=== PATIENT | male | born 2000 | race Caucasian/White ===

== ENCOUNTER 2023-05-01 14:57 | Emergency (ER) | payer OTHER, SELFPAY ==
[2023-05-01 14:59] VITALS: BP 158/79; PULSE 96; RESP 18; TEMP 36.9; O2SAT 98; BMI 25.1
--- NOTE | 2023-05-01 15:11 | PC.NURSE ---
DR YANEZ AT BEDSIDE
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
[2023-05-01 15:39] LABS: Basophils % 0.6 % (0.1-2.0); Eosinophils # 0.1 K/mm3 (0.0-0.4); Eosinophils % 3.2 % (0.1-12.0); Hemoglobin 13.4 g/dL (14.1-18.0); Lymphocytes # 0.5 K/mm3 (0.7-4.5); Lymphocytes % 19.2 % (10-50); Mean Corpuscular HGB Conc 33.5 g/dL (31.8-35.4); Mean Corpuscular Hemoglobin 26.4 pg (27.0-31.2); Mean Corpuscular Volume 78.6 fl (80-94); Mean Platelet Volume 9.5 fl (7.4-10.4); Monocytes # 0.3 K/mm3 (0.1-1.0); Monocytes % 10.7 % (1.7-9.3); Neutrophils # 1.7 K/mm3 (1.8-7.8); Neutrophils % 66.4 % (37.0-80.0); Red Blood Count 5.09 M/mm3 (4.60-6.20); Red Cell Distribution Width 14.8 % (11.5-17.5); White Blood Count 2.5 K/mm3 (4.8-10.8)
[2023-05-01 15:47] LABS: Alanine Aminotransferase 51 U/L (12-78); Albumin/Globulin Ratio 1.5 (1.1-1.8); Alkaline Phosphatase 57 U/L (38-126); Anion Gap 11.5 mEq/L (5-15); Aspartate Amino Transferase 55 U/L (17-59); Bilirubin,Total 2.6 mg/dl (0.2-1.3); Blood Urea Nitrogen 13 mg/dl (9-20); Calcium 8.6 mg/dl (8.4-10.2); Carbon Dioxide 25 mmol/L (22.0-30.0); Chloride 108 mmol/L (98-107); Estimated Glomerular Filt Rate 92 ml/min (>60); GFR (African American) 111 ML/MIN (>60); Globulin 2.7 g/dL (1.3-3.2); Glucose 125 mg/dl (74-100); Lipase 136 U/L (23-300); Potassium 3.5 mmoL/L (3.5-5.1); Sodium 141 mmol/L (136-145); Total Protein,Serum 6.7 g/dl (6.3-8.2)
[2023-05-01 15:58] LABS: Platelet Count 38 K/mm3 (142-424)
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
[2023-05-01 17:26] VITALS: BP 141/77; PULSE 77; RESP 16; TEMP 36.9; O2SAT 98
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
== END 2023-05-01 17:28 | disposition home or self-care (01) ==
PROVIDERS: Emergency Provider Emergency Medicine; PCP Family Medicine
DX: S20.219A Contusion of unspecified front wall of thorax, initial encounter (principal); S66.911A Strain of unspecified muscle, fascia and tendon at wrist and hand level, right hand, initial encounter; M25.511 Pain in right shoulder; R16.1 Splenomegaly, not elsewhere classified; V44.5XXA Car driver injured in collision with heavy transport vehicle or bus in traffic accident, initial encounter
CPT/HCPCS: 71046; 73130; 80053; 83690; 85025; 99284; 99285

== ENCOUNTER 2023-05-05 11:30 | Emergency (ER) | payer OTHER, SELFPAY ==
[2023-05-05 11:30] VITALS: BP 131/77; PULSE 64; RESP 18; TEMP 36.8; O2SAT 98; BMI 26.1
[2023-05-05 11:51] VITALS: BP 131/77; PULSE 64; RESP 18; TEMP 36.8; O2SAT 98
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
== END 2023-05-05 12:17 | disposition home or self-care (01) ==
PROVIDERS: Emergency Provider Nurse Practitioner; PCP Family Medicine
DX: Z76.89 Persons encountering health services in other specified circumstances (principal)
CPT/HCPCS: 99202; 99211; G0463

== ENCOUNTER 2024-02-22 17:21 | Emergency (ER) | payer BC, SELFPAY ==
[2024-02-22] VITALS (14 sets, daily range): BP systolic 90–133; BP diastolic 45–76; PULSE 70–94; RESP 20; TEMP 36.5–36.6; O2SAT 95–98; BMI 27.3
--- NOTE | 2024-02-22 17:24 | PC.NURSE ---
[facility] CONTACTED FOR FLIGHT CHECK
--- NOTE | 2024-02-22 17:33 | PC.NURSE ---
PHARMACY CALLED FOR DOSING OF MEDICATION
[2024-02-22] MEDS: PANTOPRAZOLE SODIUM 80 MG in 0.9 % SODIUM CHLORIDE 100 ML 100 MG IV (17:34)
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
[2024-02-22] MEDS: OCTREOTIDE ACETATE 50 MCG in 0.9 % SODIUM CHLORIDE 50 ML 102 MCG IV (17:38)
--- NOTE | 2024-02-22 17:40 | PC.NURSE ---
CONTACTING FOR TRANSFER
--- NOTE | 2024-02-22 17:40 | PC.NURSE ---
Called lab for emergent release of O+, talked to Jayy
--- NOTE | 2024-02-22 17:44 | PC.NURSE ---
[facility] CONTACTED FOR TRANSPORT
[2024-02-22 17:49] LABS: Basophils # 0.1 K/mm3 (0-0.2); Eosinophils # 0.3 K/mm3 (0.0-0.4); Eosinophils % 3.4 % (0.1-12.0); Hematocrit 39.9 % (42.0-52.0); Hemoglobin 13.7 g/dL (14.1-18.0); Lymphocytes # 3.6 K/mm3 (0.7-4.5); Lymphocytes % 39.7 % (10-50); Mean Corpuscular HGB Conc 34.2 g/dL (31.8-35.4); Mean Corpuscular Hemoglobin 27.2 pg (27.0-31.2); Mean Corpuscular Volume 79.6 fl (80-94); Mean Platelet Volume 8.8 fl (7.4-10.4); Monocytes # 0.9 K/mm3 (0.1-1.0); Monocytes % 9.4 % (1.7-9.3); Neutrophils # 4.2 K/mm3 (1.8-7.8); Neutrophils % 46.6 % (37.0-80.0); Platelet Count 116 K/mm3 (142-424); Red Blood Count 5.02 M/mm3 (4.60-6.20); Red Cell Distribution Width 15.4 % (11.5-17.5)
--- NOTE | 2024-02-22 17:55 | PC.NURSE ---
[facility] ACCEPTED FLIGHT, ON STAND-BY UNTIL OFFICIAL ACCEPTANCE FROM
--- NOTE | 2024-02-22 17:58 | HMH.EDGENADL ---
Discharge Plan Disposition Patient Disposition: Xfer Short-Term Hosp Chief Complaint: GI Bleed Referrals Follow up/Referrals: Arsh Knox MD [Primary Care Provider] - See instructions Clinical Impressions Clinical Impression: Acute upper gastrointestinal hemorrhage Instructions Patient Instructions: DI for Gastrointestinal Bleeding Discharge ED Provider: Eloy Eden General Adult HPI <LISA Montoya - Last Filed: 02/22/24 17:58> General Chief complaint: GI Bleed Stated complaint: vomiting blood Time Seen by Provider: 02/22/24 17:31 Mode of Arrival: Ambulatory Source of Information: Patient Limitations: No Limitations Description of Symptoms (Recalled from ER Triage Doc. by RN): Patient states he started vomiting blood at 4:50pm today. Patient presents very pale, hx of cancer as a child. Patient called [facility] and spoke with his GI doctor and was told to come to the nearest ED. Related Data Allergies Allergy/AdvReac Type Severity Reaction Status Date / Time morphine [MORPHINE] Allergy Mild Verified 05/05/23 11:43 <Eloy Eden MD - Last Filed: 02/22/24 19:00> History of Present Illness HPI narrative: Please note that above description of symptoms, in this electronic medical record under categorization of recalled from ER triage doctor by RN are reflective of an initial nursing assessment, however, is not reflective of my full history and physical exam that was personally taken and clarified. Consequentially, this preceding description of symptoms, which may include the patient's categorized chief complaint in the EMR, do not reflect my personal clinical impression, and the ultimate description of history of present illness and patient stated complaints should be deferred to this section of the note. Unless stated otherwise or congruent with this section of the note, additional signs, symptoms, or incongruence should be interpreted as inaccurate with my clinical impression. PFSH <LISA Montoya - Last Filed: 02/22/24 17:58> [facility] Disclaimer: The information contained in this section may have been updated after the patient was seen, as this information can be updated by other users. Social History (Updated 05/03/23 @ 22:59 by Osmar Walters MD) Smoking Status: Never smoker alcohol intake: never current occupational status: employed Travel in the last 8 weeks: None <Eloy Eden MD - Last Filed: 02/22/24 19:00> ROS Obtained: Yes All systems reviewed & no additional complaints except as documented Physical Exam <Eloy Eden MD - Last Filed: 02/22/24 19:00> General General appearance: alert and other (Intermittently vomiting large-volume bright red blood. Pale, diaphoretic) Head Head exam: atraumatic and normocephalic Eye Eye exam: Present normal appearance, PERRL and EOMI ENT ENT exam: Present mucous membranes moist and other (Blood in oropharynx) Neck Neck exam: Present normal inspection, full ROM and trachea midline Respiratory Respiratory exam: Absent normal lung sounds bilaterally, respiratory distress, wheezes, stridor, accessory muscle use or prolonged expiratory phase Cardiovascular Cardiovascular exam: Present regular rate, normal rhythm and other (Moderately hypotensive systolic 70); Absent tachycardia Abdominal Exam Abdominal exam: Present soft; Absent distention, tenderness, guarding, rebound or rigidity Extremities Exam Extremities exam: Absent edema Neurological Exam Neurological exam: Present alert, oriented X3, CN II-XII intact and normal gait; Absent motor sensory deficit Skin Skin exam: Present warm, dry and diaphoresis; Absent erythema Medical Decision Making <LISA Montoya - Last Filed: 02/22/24 17:58> Vital Signs: 02/22/24 17:32 02/22/24 17:43 02/22/24 17:45 Temperature Temperature Source Pulse Rate 81 72 78 Pulse Rate [Right Radial] Respiratory Rate Blood Pressure 90/45 L 106/67 L 123/71 Blood Pressure [Right Arm] Blood Pressure Mean 57 75 78 Blood Pressure Mean [Right Arm] Blood Pressure Source [Right Arm] Blood Pressure Position [Right Arm] 02 Sat by Pulse Oximetry 95 97 97 Oxygen Delivery Method 02/22/24 17:47 02/22/24 17:51 02/22/24 17:55 Temperature 97.7 F Temperature Source Oral Pulse Rate 94 H 77 Pulse Rate [Right Radial] 70 Respiratory Rate 20 Blood Pressure 127/55 L 109/53 L Blood Pressure [Right Arm] 90/45 L Blood Pressure Mean 75 73 Blood Pressure Mean [Right Arm] 60 Blood Pressure Source [Right Arm] Automatic Cuff Blood Pressure Position [Right Arm] Sitting 02 Sat by Pulse Oximetry 96 96 97 Oxygen Delivery Method Room Air 02/22/24 18:00 02/22/24 18:05 02/22/24 18:15 Temperature Temperature Source Pulse Rate 73 78 89 Pulse Rate [Right Radial] Respiratory Rate Blood Pressure 109/58 L 112/73 118/73 Blood Pressure [Right Arm] Blood Pressure Mean 76 80 87 Blood Pressure Mean [Right Arm] Blood Pressure Source [Right Arm] Blood Pressure Position [Right Arm] 02 Sat by Pulse Oximetry 98 98 95 Oxygen Delivery Method 02/22/24 18:20 02/22/24 18:25 02/22/24 18:30 Temperature Temperature Source Pulse Rate 88 81 72 Pulse Rate [Right Radial] Respiratory Rate Blood Pressure 126/63 128/71 116/76 Blood Pressure [Right Arm] Blood Pressure Mean 84 84 85 Blood Pressure Mean [Right Arm] Blood Pressure Source [Right Arm] Blood Pressure Position [Right Arm] 02 Sat by Pulse Oximetry 98 97 98 Oxygen Delivery Method 02/22/24 18:35 Temperature Temperature Source Pulse Rate 79 Pulse Rate [Right Radial] Respiratory Rate Blood Pressure 122/74 Blood Pressure [Right Arm] Blood Pressure Mean 93 Blood Pressure Mean [Right Arm] Blood Pressure Source [Right Arm] Blood Pressure Position [Right Arm] 02 Sat by Pulse Oximetry 98 Oxygen Delivery Method Lab Data Lab Results 02/22/24 17:28: WBC 9.0, RBC 5.02, Hgb 13.7 L, Hct 39.9 L, MCV 79.6 L, MCH 27.2, MCHC 34.2, RDW 15.4, Plt Count 116 L, MPV 8.8, Neut % (Auto) 46.6, Lymph % (Auto) 39.7, [place] % (Auto) 9.4 H, Eos % (Auto) 3.4, Baso % (Auto) 1.0, Neut # (Auto) 4.2, Lymph # (Auto) 3.6, [place] # (Auto) 0.9, Eos # (Auto) 0.3, Baso # (Auto) 0.1, Sodium 142, Potassium 3.8, Chloride 112 H, Carbon Dioxide 26, Anion Gap 7.8, BUN 16, Creatinine 1.00, Estimated Creat Clear 130, Estimated GFR 91, Est GFR ( Amer) 110, Glucose 87, Calcium 8.6, Total Bilirubin 2.1 H, AST 64 H, ALT 54, Alkaline Phosphatase 48, Total Protein 6.4, Albumin 3.8, Globulin 2.6, Albumin/Globulin Ratio 1.5, Blood Type O Negative, Antibody Screen Negative, Crossmatch ([facility]) See Detail 02/22/24 17:33: PT 14.7 H, INR 1.39 H, APTT 26.9 02/22/24 17:28 02/22/24 17:28 Orders (Tests/Meds): ED MEDICATIONS Generic Name Dose Route Start Last Admin Trade Name Freq PRN Reason Stop Dose Admin Octreotide Acetate 500 mcg/ 255 mls @ 25.5 mls/hr 02/22/24 17:45 02/22/24 18:09 Sodium Chloride IV 03/23/24 17:44 25.5 mls/hr .Q10H MAYANK Administration 50 MCG/HR Sodium Chloride 250 mls @ 25 mls/hr 02/22/24 17:45 02/22/24 18:55 Sod Chlor 0.9% 250ml Bag IV 02/23/24 17:44 25 mls/hr .Q10H MAYANK Administration Sodium Chloride 10 ml 02/22/24 17:31 Sodium Chloride 0.9% 10ml Vial IV 03/23/24 17:30 NEEDED PRN dilute protonix Discontinued Medications Generic Name Dose Route Start Last Admin Trade Name Freq PRN Reason Stop Dose Admin Lactated Ringer's 1,000 mls @ 999 mls/hr 02/22/24 17:31 02/22/24 18:54 Lactated Ringer's 1000 Ml Bag IV 02/22/24 18:31 999 mls/hr .Q1H1M ONE Administration Octreotide Acetate 50 mcg/ 51 mls @ 102 mls/hr 02/22/24 17:45 02/22/24 17:38 Sodium Chloride IV 02/22/24 18:14 102 mls/hr ONCE ONE Administration Pantoprazole Sodium 80 mg/ 100 mls @ 100 mls/hr 02/22/24 17:46 02/22/24 17:34 Sodium Chloride IV 02/22/24 18:45 100 mls/hr ONCE ONE Administration Pantoprazole Sodium 40 mg 02/22/24 17:31 02/22/24 17:46 Pantoprazole 40mg Vial IV 02/22/24 17:32 Not Given ONCE ONE ORDERS Category Date Time Status Transfuse RBC's [Red Blood Cells] Stat [facility] 02/22/24 17:28 Results Type and Screen Stat [facility] 02/22/24 17:28 Results CBC w/Auto Diff [Complete Blood Count Auto Diff] Stat Lab 02/22/24 17:28 Completed CMP [Comprehensive Metabolic Panel] Stat Lab 02/22/24 17:28 Completed PT INR [Prothrombin Time INR] Stat Lab 02/22/24 17:33 Completed PTT [Activated Partial Thrombo Time] Stat Lab 02/22/24 17:33 Completed <Eloy Eden MD - Last Filed: 02/22/24 19:00> Medical Records Medical records reviewed: Yes I reviewed the patient's medical records. Juan Carlos Inquiry Pt receiving controlled substance: No Juan Carlos was queried for this patient: No Vital Signs: 02/22/24 17:32 02/22/24 17:43 02/22/24 17:45 Temperature Temperature Source Pulse Rate 81 72 78 Pulse Rate [Right Radial] Respiratory Rate Blood Pressure 90/45 L 106/67 L 123/71 Blood Pressure [Right Arm] Blood Pressure Mean 57 75 78 Blood Pressure Mean [Right Arm] Blood Pressure Source [Right Arm] Blood Pressure Position [Right Arm] 02 Sat by Pulse Oximetry 95 97 97 Oxygen Delivery Method 02/22/24 17:47 02/22/24 17:51 02/22/24 17:55 Temperature 97.7 F Temperature Source Oral Pulse Rate 94 H 77 Pulse Rate [Right Radial] 70 Respiratory Rate 20 Blood Pressure 127/55 L 109/53 L Blood Pressure [Right Arm] 90/45 L Blood Pressure Mean 75 73 Blood Pressure Mean [Right Arm] 60 Blood Pressure Source [Right Arm] Automatic Cuff Blood Pressure Position [Right Arm] Sitting 02 Sat by Pulse Oximetry 96 96 97 Oxygen Delivery Method Room Air 02/22/24 18:00 02/22/24 18:05 02/22/24 18:15 Temperature Temperature Source Pulse Rate 73 78 89 Pulse Rate [Right Radial] Respiratory Rate Blood Pressure 109/58 L 112/73 118/73 Blood Pressure [Right Arm] Blood Pressure Mean 76 80 87 Blood Pressure Mean [Right Arm] Blood Pressure Source [Right Arm] Blood Pressure Position [Right Arm] 02 Sat by Pulse Oximetry 98 98 95 Oxygen Delivery Method 02/22/24 18:20 02/22/24 18:25 02/22/24 18:30 Temperature Temperature Source Pulse Rate 88 81 72 Pulse Rate [Right Radial] Respiratory Rate Blood Pressure 126/63 128/71 116/76 Blood Pressure [Right Arm] Blood Pressure Mean 84 84 85 Blood Pressure Mean [Right Arm] Blood Pressure Source [Right Arm] Blood Pressure Position [Right Arm] 02 Sat by Pulse Oximetry 98 97 98 Oxygen Delivery Method 02/22/24 18:35 Temperature Temperature Source Pulse Rate 79 Pulse Rate [Right Radial] Respiratory Rate Blood Pressure 122/74 Blood Pressure [Right Arm] Blood Pressure Mean 93 Blood Pressure Mean [Right Arm] Blood Pressure Source [Right Arm] Blood Pressure Position [Right Arm] 02 Sat by Pulse Oximetry 98 Oxygen Delivery Method Lab Data Lab Results 02/22/24 17:28: WBC 9.0, RBC 5.02, Hgb 13.7 L, Hct 39.9 L, MCV 79.6 L, MCH 27.2, MCHC 34.2, RDW 15.4, Plt Count 116 L, MPV 8.8, Neut % (Auto) 46.6, Lymph % (Auto) 39.7, [place] % (Auto) 9.4 H, Eos % (Auto) 3.4, Baso % (Auto) 1.0, Neut # (Auto) 4.2, Lymph # (Auto) 3.6, [place] # (Auto) 0.9, Eos # (Auto) 0.3, Baso # (Auto) 0.1, Sodium 142, Potassium 3.8, Chloride 112 H, Carbon Dioxide 26, Anion Gap 7.8, BUN 16, Creatinine 1.00, Estimated Creat Clear 130, Estimated GFR 91, Est GFR ( Amer) 110, Glucose 87, Calcium 8.6, Total Bilirubin 2.1 H, AST 64 H, ALT 54, Alkaline Phosphatase 48, Total Protein 6.4, Albumin 3.8, Globulin 2.6, Albumin/Globulin Ratio 1.5, Blood Type O Negative, Antibody Screen Negative, Crossmatch ([facility]) See Detail 02/22/24 17:33: PT 14.7 H, INR 1.39 H, APTT 26.9 Orders (Tests/Meds): ED MEDICATIONS Generic Name Dose Route Start Last Admin Trade Name Freq PRN Reason Stop Dose Admin Octreotide Acetate 500 mcg/ 255 mls @ 25.5 mls/hr 02/22/24 17:45 02/22/24 18:09 Sodium Chloride IV 03/23/24 17:44 25.5 mls/hr .Q10H MAYANK Administration 50 MCG/HR Sodium Chloride 250 mls @ 25 mls/hr 02/22/24 17:45 02/22/24 18:55 Sod Chlor 0.9% 250ml Bag IV 02/23/24 17:44 25 mls/hr .Q10H MAYANK Administration Sodium Chloride 10 ml 02/22/24 17:31 Sodium Chloride 0.9% 10ml Vial IV 03/23/24 17:30 NEEDED PRN dilute protonix Discontinued Medications Generic Name Dose Route Start Last Admin Trade Name Freshilpi PRN Reason Stop Dose Admin Lactated Ringer's 1,000 mls @ 999 mls/hr 02/22/24 17:31 02/22/24 18:54 Lactated Ringer's 1000 Ml Bag IV 02/22/24 18:31 999 mls/hr .Q1H1M ONE Administration Octreotide Acetate 50 mcg/ 51 mls @ 102 mls/hr 02/22/24 17:45 02/22/24 17:38 Sodium Chloride IV 02/22/24 18:14 102 mls/hr ONCE ONE Administration Pantoprazole Sodium 80 mg/ 100 mls @ 100 mls/hr 02/22/24 17:46 02/22/24 17:34 Sodium Chloride IV 02/22/24 18:45 100 mls/hr ONCE ONE Administration Pantoprazole Sodium 40 mg 02/22/24 17:31 02/22/24 17:46 Pantoprazole 40mg Vial IV 02/22/24 17:32 Not Given ONCE ONE ORDERS Category Date Time Status Transfuse RBC's [Red Blood Cells] Stat [facility] 02/22/24 17:28 Results Type and Screen Stat [facility] 02/22/24 17:28 Results CBC w/Auto Diff [Complete Blood Count Auto Diff] Stat Lab 02/22/24 17:28 Completed CMP [Comprehensive Metabolic Panel] Stat Lab 02/22/24 17:28 Completed PT INR [Prothrombin Time INR] Stat Lab 02/22/24 17:33 Completed PTT [Activated Partial Thrombo Time] Stat Lab 02/22/24 17:33 Completed Medical Decision Narrative: 23-year-old male previous history of lymphoma status post chemo therapy with resultant liver fibrosis and cirrhosis, hepatosplenomegaly, no history of EGD or definitive diagnosis of esophageal varices presenting with bright red vomiting. Started just before arrival, About 30 minutes. Patient states that he was about an hour after eating. [place] sick. Started vomiting, it was bright red. Got ready and came immediately to the emergency department. He did call his liver team at [facility], [facility] whom [facility] They recommended he come emergently to the emergency department. Patient still nauseated, intermittently vomiting, denies abdominal pain, chest pain, lightheadedness, but does feel weak. Not on any anticoagulation. History was obtained via conversation with patient and family. On arrival, patient hemodynamically stable, alert, [oriented x4, ][appropriate, ]GCS [15], moving all extremities spontaneously, pupils equal and reactive to light. Full physical exam performed and significant for pale, diaphoretic, nontachycardic patient. He is moderately hypotensive with systolic 75. Nontachycardic. Abdomen is soft, nontender, nondistended. He does have blood in his oropharynx. He is intermittently vomiting bright red blood. Differential includes variceal bleed, gastric ulcer, gastritis, esophageal perforation, end-stage liver failure, among others. Patient was given 80 mg IV Protonix push, 50 mcg octreotide bolus and 50 mcg/h octreotide drip. Patient also given 1 unit O+ blood. For symptomatic management[ and correction of underlying abnormalities]. Flight team contacted and asked to wait on standby. [facility] hepatology was contacted and case was discussed at length, recommended direct admission to the PICU if possible, but possible ED to ED transfer, whichever is fastest. Pediatric ICU contacted and case was discussed at length graciously excepted transfer under Dr Carlson. workup independently interpreted and significant for normal white count 9.0, hematocrit 39.9, hemoglobin 13.7, thrombocytopenia 116. Chemistry nonactionable overall, bilirubin mildly elevated at 2.1, LFTs otherwise unremarkable including alkaline phosphatase, AST, ALT. Patient's blood type O-. On immediate reevaluation after meds and blood, patient appears much more comfortable. Improved hemodynamics with blood pressure 122/70, pulse rate 79, respiratory rate 20, 98% on room air, afebrile and well-appearing. No longer pale, diaphoretic, no longer having any complaints and no further vomiting. Because patient high risk for clinical decompensation if discharged, deemed appropriate for transfer and inpatient admission. Results were relayed to patient who voiced understanding and patient was agreeable to transfer, inpatient admission, and management. Patient was graciously accepted and transferred to [facility] pediatric ICU for further definitive management, under Dr. Carlson. Critical Care <Eloy Eden MD - Last Filed: 02/22/24 19:00> Critical Care Time Critical Care Time: Yes (hematologic, GI) Attestation: On 02/22/24, the high probability of a clinically significant, sudden or life threatening deterioration of the following system(s) required my full and direct attention, intervention and personal management. The time I documented below is in addition to time spent performing reported procedures but includes the following listed in this critical care notation. Total Time Total Critical Care Time: 60
[2024-02-22 18:01] LABS: Alanine Aminotransferase 54 U/L (12-78); Albumin Level 3.8 g/dl (3.5-5.0); Albumin/Globulin Ratio 1.5 (1.1-1.8); Alkaline Phosphatase 48 U/L (38-126); Anion Gap 7.8 mEq/L (5-15); Aspartate Amino Transferase 64 U/L (17-59); Bilirubin,Total 2.1 mg/dl (0.2-1.3); Blood Urea Nitrogen 16 mg/dl (9-20); Calcium 8.6 mg/dl (8.4-10.2); Carbon Dioxide 26 mmol/L (22.0-30.0); Chloride 112 mmol/L (98-107); Creatinine Clearance Estimated 130 mL/min (50-200); Estimated Glomerular Filt Rate 91 ml/min (>60); GFR (African American) 110 ML/MIN (>60); Globulin 2.6 g/dL (1.3-3.2); Glucose 87 mg/dl (74-100); Potassium 3.8 mmoL/L (3.5-5.1); Sodium 142 mmol/L (136-145); Total Protein,Serum 6.4 g/dl (6.3-8.2)
[2024-02-22 18:04] LABS: Activated Partial Thrombo Time 26.9 seconds (22.8-30.6); INR 1.39 (0.9-1.1); Prothrombin Time 14.7 seconds (10.1-12.5)
--- NOTE | 2024-02-22 18:05 | PC.NURSE ---
ATTEMPTING TO REACH PICU MD INTERTYPE OPERATOR
[2024-02-22] MEDS: OCTREOTIDE ACETATE 500 MCG in 0.9 % SODIUM CHLORIDE 250 ML 25.5 MCG IV (18:09)
--- NOTE | 2024-02-22 18:37 | PC.NURSE ---
PICU PAGED AGAIN
--- NOTE | 2024-02-22 18:46 | PC.NURSE ---
DR WU SPEAKING WITH PICU MD
[2024-02-22] MEDS: LACTATED RINGERS 1000ML 1,000 ML 999 ML IV (18:54)
[2024-02-22] MEDS: 0.9 % SODIUM CHLORIDE 250 ML 25 ML IV (18:55)
--- NOTE | 2024-02-22 18:57 | PC.NURSE ---
CONTACTED [facility] FOR FLIGHT CHECK, WILL CALL BACK
--- NOTE | 2024-02-22 19:04 | PC.NURSE ---
RECEIVED CALL FROM KEVIN AT , [facility] FLIGHT CHECK AND CALL BACK
--- NOTE | 2024-02-22 19:16 | PC.NURSE ---
[facility] is enroute to transfer pt to [facility] via [facility]. ETA 43 mins. and RN made aware. CR
--- NOTE | 2024-02-22 19:22 | PC.NURSE ---
Attempted to give report to [facility] PICU, nurse asked to call back after shift change in about 20 minutes. Nurse was unaware of the transfer.
--- NOTE | 2024-02-22 19:34 | PC.NURSE ---
Spoke with Cindi at transfer team they will arrive in 30 minutes.
--- NOTE | 2024-02-22 19:42 | PC.NURSE ---
[facility] called. Requesting a facesheet be faxed to them. Also advised they have a 29 min ETA. CR
--- NOTE | 2024-02-22 20:00 | PC.NURSE ---
report given to TYRA Wise at PICU.
== END 2024-02-22 20:21 | disposition short-term general hospital (02) ==
PROVIDERS: Emergency Provider Emergency Medicine; PCP Family Medicine
DX: K92.2 Gastrointestinal hemorrhage, unspecified (principal); K71.7 Toxic liver disease with fibrosis and cirrhosis of liver; Z85.72 Personal history of non-Hodgkin lymphomas; Z92.21 Personal history of antineoplastic chemotherapy; T45.1X5A Adverse effect of antineoplastic and immunosuppressive drugs, initial encounter
CPT/HCPCS: 36430; 80053; 85025; 85610; 85730; 86850; 96365; 96366; 96375; 99291; J2354; P9016

== ENCOUNTER 2024-02-29 21:05 | Emergency (ER) | payer BC, SELFPAY ==
[2024-02-29] VITALS (8 sets, daily range): BP systolic 72–108; BP diastolic 37–74; PULSE 63–84; RESP 11–17; TEMP 36.6–36.7; O2SAT 97–100; BMI 25.1
[2024-02-29] MEDS: CEFTRIAXONE SODIUM 2 GM in 0.9 % SODIUM CHLORIDE 100 ML IV (21:29)
[2024-02-29 21:30] LABS: Basophils # 0.1 K/mm3 (0-0.2); Basophils % 0.8 % (0.1-2.0); Eosinophils # 0.3 K/mm3 (0.0-0.4); Eosinophils % 4.1 % (0.1-12.0); Hematocrit 35.1 % (42.0-52.0); Hemoglobin 11.7 g/dL (14.1-18.0); Lymphocytes % 37.5 % (10-50); Mean Corpuscular HGB Conc 33.3 g/dL (31.8-35.4); Mean Corpuscular Hemoglobin 27.4 pg (27.0-31.2); Mean Corpuscular Volume 82.4 fl (80-94); Mean Platelet Volume 9.4 fl (7.4-10.4); Monocytes # 0.7 K/mm3 (0.1-1.0); Monocytes % 8.3 % (1.7-9.3); Neutrophils % 49.3 % (37.0-80.0); Platelet Count 184 K/mm3 (142-424); Red Blood Count 4.26 M/mm3 (4.60-6.20); White Blood Count 8.1 K/mm3 (4.8-10.8)
[2024-02-29 21:32] LABS: Chloride 110 mmol/L (98-107); Potassium 4.1 mmoL/L (3.5-5.1); Sodium 141 mmol/L (136-145)
[2024-02-29 21:35] LABS: Alanine Aminotransferase 49 U/L (12-78); Albumin Level 3.3 g/dl (3.5-5.0); Albumin/Globulin Ratio 1.4 (1.1-1.8); Alkaline Phosphatase 48 U/L (38-126); Anion Gap 8.1 mEq/L (5-15); Aspartate Amino Transferase 48 U/L (17-59); Bilirubin,Total 1.6 mg/dl (0.2-1.3); Blood Urea Nitrogen 11 mg/dl (9-20); Calcium 8.9 mg/dl (8.4-10.2); Carbon Dioxide 27 mmol/L (22.0-30.0); Creatinine Clearance Estimated 112 mL/min (50-200); Estimated Glomerular Filt Rate 82 ml/min (>60); GFR (African American) 99 ML/MIN (>60); Globulin 2.4 g/dL (1.3-3.2); Glucose 104 mg/dl (74-100); Total Protein,Serum 5.7 g/dl (6.3-8.2)
[2024-02-29] MEDS: OCTREOTIDE ACETATE 500 MCG in 0.9 % SODIUM CHLORIDE 250 ML 25.5 MCG IV (21:35)
[2024-02-29] MEDS: OCTREOTIDE ACETATE 50 MCG in 0.9 % SODIUM CHLORIDE 50 ML 102 MCG IV (21:41)
[2024-02-29] MEDS: PANTOPRAZOLE 40MG VIAL 40 MG IV (21:50)
--- NOTE | 2024-02-29 22:05 | HMH.EDGENADL ---
Discharge Plan Disposition Patient Disposition: Xfer Short-Term Hosp Chief Complaint: GI Bleed Referrals Follow up/Referrals: Arsh Knox MD [Primary Care Provider] - See instructions Clinical Impressions Clinical Impression: Esophageal varices, Acute upper gastrointestinal bleeding Instructions Patient Instructions: DI for Gastrointestinal Bleeding Discharge ED Provider: Eloy Eden General Adult HPI General Chief complaint: GI Bleed Stated complaint: gi bleed Time Seen by Provider: 02/29/24 21:06 Mode of Arrival: Ambulatory Source of Information: Patient Limitations: No Limitations Description of Symptoms (Recalled from ER Triage Doc. by RN): pt states began vomitting blood @ 2044 and had [address] last week for esophageal varices @ children History of Present Illness HPI narrative: Please note that above description of symptoms, in this electronic medical record under categorization of recalled from ER triage doctor by RN are reflective of an initial nursing assessment, however, is not reflective of my full history and physical exam that was personally taken and clarified. Consequentially, this preceding description of symptoms, which may include the patient's categorized chief complaint in the EMR, do not reflect my personal clinical impression, and the ultimate description of history of present illness and patient stated complaints should be deferred to this section of the note. Unless stated otherwise or congruent with this section of the note, additional signs, symptoms, or incongruence should be interpreted as inaccurate with my clinical impression. Related Data Allergies Allergy/AdvReac Type Severity Reaction Status Date / Time morphine [MORPHINE] Allergy Mild Verified 05/05/23 11:43 [facility] Disclaimer: The information contained in this section may have been updated after the patient was seen, as this information can be updated by other users. Medical History (Updated 02/29/24 @ 22:11 by Eloy Eden MD) Esophageal varices Lymphoma Social History (Updated 05/03/23 @ 22:59 by Osmar Walters MD) Smoking Status: Never smoker alcohol intake: never current occupational status: employed Travel in the last 8 weeks: None ROS Obtained: Yes All systems reviewed & no additional complaints except as documented Physical Exam General General appearance: alert, in distress and other (Pale, diaphoretic, holding emesis basin near full of bright red blood) Head Head exam: atraumatic and normocephalic Eye Eye exam: Present normal appearance, PERRL and EOMI ENT ENT exam: Present mucous membranes moist Neck Neck exam: Present normal inspection, full ROM and trachea midline Respiratory Respiratory exam: Absent respiratory distress, wheezes, stridor, accessory muscle use or prolonged expiratory phase Cardiovascular Cardiovascular exam: Present regular rate and normal rhythm Abdominal Exam Abdominal exam: Present soft; Absent distention, tenderness, guarding, rebound or rigidity Extremities Exam Extremities exam: Absent edema Neurological Exam Neurological exam: Present alert, oriented X3, CN II-XII intact and normal gait; Absent motor sensory deficit Skin Skin exam: Present warm, dry and diaphoresis; Absent erythema Medical Decision Making Medical Records Medical records reviewed: Yes I reviewed the patient's medical records. Juan Carlos Inquiry Pt receiving controlled substance: No Juan Carlos was queried for this patient: No Vital Signs: 02/29/24 21:05 Temperature 98.1 F Temperature Source Axillary Pulse Rate [Right] 75 Respiratory Rate 16 Blood Pressure [Right Arm] 105/74 L Blood Pressure Mean [Right Arm] 84 02 Sat by Pulse Oximetry 97 Lab Data Lab Results 02/29/24 21:16: WBC 8.1, RBC 4.26 L, Hgb 11.7 L, Hct 35.1 L, MCV 82.4, MCH 27.4, MCHC 33.3, RDW 16.0, Plt Count 184, MPV 9.4, Neut % (Auto) 49.3, Lymph % (Auto) 37.5, Ford % (Auto) 8.3, Eos % (Auto) 4.1, Baso % (Auto) 0.8, Neut # (Auto) 4.0, Lymph # (Auto) 3.0, Ford # (Auto) 0.7, Eos # (Auto) 0.3, Baso # (Auto) 0.1, Sodium 141, Potassium 4.1, Chloride 110 H, Carbon Dioxide 27, Anion Gap 8.1, BUN 11, Creatinine 1.10, Estimated Creat Clear 112, Estimated GFR 82, Est GFR ( Amer) 99, Glucose 104 H, Calcium 8.9, Total Bilirubin 1.6 H, AST 48, ALT 49, Alkaline Phosphatase 48, Total Protein 5.7 L, Albumin 3.3 L, Globulin 2.4, Albumin/Globulin Ratio 1.4, Crossmatch (AHG) See Detail 02/29/24 21:16 02/29/24 21:16 Orders (Tests/Meds): ED MEDICATIONS Generic Name Dose Route Start Last Admin Trade Name Freq PRN Reason Stop Dose Admin Octreotide Acetate 500 mcg/ 255 mls @ 25.5 mls/hr 02/29/24 21:15 02/29/24 21:35 Sodium Chloride IV 03/30/24 21:14 25.5 mls/hr .Q10H MAYANK Administration 50 MCG/HR Sodium Chloride 250 mls @ 25 mls/hr 02/29/24 21:30 Sod Chlor 0.9% 250ml Bag IV 03/01/24 21:29 .Q10H MAYANK Sodium Chloride 250 mls @ 25 mls/hr 02/29/24 21:30 Sod Chlor 0.9% 250ml Bag IV 03/01/24 21:29 .Q10H MAYANK Sodium Chloride 10 ml 02/29/24 21:37 Sodium Chloride 0.9% 10ml Vial IV 03/30/24 21:36 NEEDED PRN dilute protonix Discontinued Medications Generic Name Dose Route Start Last Admin Trade Name Freq PRN Reason Stop Dose Admin Octreotide Acetate 50 mcg/ 51 mls @ 102 mls/hr 02/29/24 21:07 02/29/24 21:41 Sodium Chloride IV 02/29/24 21:08 102 mls/hr ONCE ONE Administration Ceftriaxone Sodium 2 gm/ 100 mls @ 200 mls/hr 02/29/24 21:06 02/29/24 21:29 Sodium Chloride IV 02/29/24 21:35 200 mls/hr ONCE ONE Administration Pantoprazole Sodium 40 mg 02/29/24 21:37 02/29/24 21:50 Pantoprazole 40mg Vial IV 02/29/24 21:38 40 mg ONCE ONE Administration ORDERS Category Date Time Status Transfuse RBC's [Red Blood Cells] Stat BBK 02/29/24 21:16 Received Type and Screen Stat BBK 02/29/24 21:16 Received CBC w/Auto Diff [Complete Blood Count Auto Diff] Stat Lab 02/29/24 21:16 Completed CMP [Comprehensive Metabolic Panel] Stat Lab 02/29/24 21:16 Completed Lactic Acid Stat Lab 02/29/24 21:06 Ordered Medical Decision Narrative: 23-year-old male history of lymphoma treated with chemotherapy with resultant cirrhosis, new recent diagnosis of esophageal varices having been banded 6 times on 02/22/2024 at [facility] presenting with bright red emesis. This has been going on about 15 minutes prior to this visit. Was at dinner, started burping, began vomiting bright red blood. Came emergently to the emergency department. Lightheaded, presyncopal, diaphoretic, pale. History was obtained via conversation with patient, family, chart review. On arrival, patient hypotensive, alert, oriented x4, appropriate, GCS 15, moving all extremities spontaneously, pupils equal and reactive to light. Full physical exam performed and significant for patient is diaphoretic, pale, hypotensive with mean arterial pressures 50s. Nontachycardic. Lungs are clear to auscultation, but patient has bright red emesis in emesis basin with 2 to 3 units of blood present. Intermittently vomiting bright red blood.. Abdomen is soft, nontender, nondistended. Differential includes band failure, new variceal bleed, gastric varices, peptic ulcer, dieulefoy lesion, among others. Hepatology and ICU at [facility] was contacted and case was discussed at length. In the meantime, patient was given 40 mg IV Protonix, 2 g ceftriaxone IV, 4 mg Zofran IV, fluid bolus, 50 mcg octreotide bolus, 50 mics per hour octreotide drip, 2 units uncrossed matched O+ blood for symptomatic management and correction of underlying abnormalities. Workup independently interpreted and significant for hemoglobin 11.7, hematocrit 35.1 (13.7 and 39.9, respectively, on 02/22/2024). Chemistry nonactionable. Conversation had with ICU gastroenterology/hepatology at [facility], graciously excepted transfer. Patient stabilized with blood, octreotide, and previously mentioned medications. Because patient high risk for clinical decompensation if discharged, deemed appropriate for transfer and inpatient admission. Results were relayed to patient who voiced understanding and patient was agreeable to transfer, inpatient admission, and management. Patient was graciously accepted and transferred to for further definitive management, under Dr. Vazquez. Critical Care Critical Care Time Critical Care Time: Yes (GI) Attestation: On 02/29/24, the high probability of a clinically significant, sudden or life threatening deterioration of the following system(s) required my full and direct attention, intervention and personal management. The time I documented below is in addition to time spent performing reported procedures but includes the following listed in this critical care notation. Total Time Total Critical Care Time: 60
[2024-02-29] MEDS: ONDANSETRON 4MG/2ML VIAL 4 MG IV (22:10)
--- NOTE | 2024-02-29 22:54 | PC.NURSE ---
EMS arrived for patient transport to [facility]. Blood continued with EMS crew and Baron Samaniego RN managing.
--- NOTE | 2024-02-29 23:00 | PC.NURSE ---
report called to TYRA Guardado at [facility]
== END 2024-02-29 23:00 | disposition short-term general hospital (02) ==
PROVIDERS: Emergency Provider Emergency Medicine; PCP Family Medicine
DX: K92.2 Gastrointestinal hemorrhage, unspecified (principal); I85.00 Esophageal varices without bleeding; K71.7 Toxic liver disease with fibrosis and cirrhosis of liver; T45.1X5A Adverse effect of antineoplastic and immunosuppressive drugs, initial encounter; Z85.72 Personal history of non-Hodgkin lymphomas; Z92.21 Personal history of antineoplastic chemotherapy
CPT/HCPCS: 36430; 80053; 85025; 86850; 96365; 96366; 96375; 99291; J0696; J2354; J2405; P9016

== ENCOUNTER 2024-03-09 18:56 | Emergency (ER) | payer BC, SELFPAY ==
[2024-03-09 18:56] VITALS: BP 62/20; PULSE 64; RESP 26; TEMP 36.4; O2SAT 97; BMI 27.2
[2024-03-09] MEDS: LACTATED RINGERS 1000ML 1,000 ML 999 ML IV (19:05)
--- NOTE | 2024-03-09 19:06 | HMH.EDGENADL ---
Discharge Plan Disposition Patient Disposition: Xfer Short-Term Hosp Clinical Impressions Clinical Impression: Hemorrhagic shock, Hematemesis, Bleeding esophageal varices Stand Alone Forms Stand Alone Forms: Transfer Record - ED Instructions Patient Instructions: DI for Gastrointestinal Bleeding Discharge ED Provider: Rubi Roblero General Adult HPI General Chief complaint: GI Bleed Stated complaint: gi bleed Time Seen by Provider: 03/09/24 19:01 History of Present Illness HPI narrative: This patient is a 23-year-old male with a history of lymphoma, cirrhosis, esophageal varices status post banding multiple times at [facility] presenting to the emergency department for evaluation with concern for large-volume hematemesis. Patient was evaluated here 02/22/2024 as well as 02/29/2024 for similar issue and was flown to [facility], at which point he had EGD with banding of esophageal varices. He noted that he was discharged a couple days ago. Bleeding started at 1850pm today. Related Data Allergies Allergy/AdvReac Type Severity Reaction Status Date / Time morphine [MORPHINE] Allergy Mild Verified 05/05/23 11:43 [facility] Disclaimer: The information contained in this section may have been updated after the patient was seen, as this information can be updated by other users. Medical History Esophageal varices Lymphoma Social History Smoking Status: Never smoker alcohol intake: never current occupational status: employed Travel in the last 8 weeks: None ROS Obtained: Yes All systems reviewed & no additional complaints except as documented Physical Exam General General appearance: alert Comment: Pale, diaphoretic, holding a large bucket of frankly bloody emesis Head Head exam: atraumatic and normocephalic Eye Eye exam: Present normal appearance, PERRL and EOMI ENT ENT exam: Present normal exam, normal oropharynx, mucous membranes moist and normal external ear exam Neck Neck exam: Present normal inspection, full ROM and trachea midline; Absent tenderness Chest Chest inspection: Present normal inspection and symmetric chest wall rise; Absent tenderness Respiratory Respiratory exam: Present normal lung sounds bilaterally; Absent respiratory distress, wheezes, stridor or accessory muscle use Cardiovascular Cardiovascular exam: Present normal rhythm and tachycardia Abdominal Exam Abdominal exam: Present soft; Absent distention, tenderness or guarding Extremities Exam Extremities exam: Present normal inspection, full ROM and normal capillary refill; Absent tenderness or edema Back Exam Back exam: Present normal inspection and full ROM; Absent tenderness Neurological Exam Neurological exam: Present alert, oriented X3, CN II-XII intact and normal gait; Absent motor sensory deficit Psychiatric Psychiatric exam: Present normal affect and normal mood Skin Skin exam: Present diaphoresis and pallor Medical Decision Making Medical Records Medical records reviewed: Yes I reviewed the patient's medical records. Juan Carlos Inquiry Pt receiving controlled substance: No Vital Signs: 03/09/24 18:56 Temperature 97.6 F Temperature Source Axillary Pulse Rate [Apical] 64 Respiratory Rate 26 H Blood Pressure [Left Arm] 62/20 L Blood Pressure Mean [Left Arm] 34 Blood Pressure Source [Left Arm] Automatic Cuff 02 Sat by Pulse Oximetry 97 Oxygen Delivery Method Room Air Lab Data Lab results reviewed: Yes I reviewed the patient's lab results. Lab Results 03/09/24 19:09: WBC 9.9, RBC 3.34 L, Hgb 8.9 L, Hct 27.5 L, MCV 82.3, MCH 26.6 L, MCHC 32.3, RDW 15.3, Plt Count 190, MPV 9.8, Neut % (Auto) 53.8, Lymph % (Auto) 33.6, Whitman % (Auto) 9.4 H, Eos % (Auto) 2.5, Baso % (Auto) 0.7, Neut # (Auto) 5.3, Lymph # (Auto) 3.3, Whitman # (Auto) 0.9, Eos # (Auto) 0.3, Baso # (Auto) 0.1 03/09/24 19:09 Orders (Tests/Meds): ED MEDICATIONS Generic Name Dose Route Start Last Admin Trade Name Freq PRN Reason Stop Dose Admin Octreotide Acetate 500 mcg/ 255 mls @ 25.5 mls/hr 03/09/24 19:15 03/09/24 19:13 Sodium Chloride IV 04/08/24 19:14 25.5 mls/hr .Q10H MAYANK Administration 50 MCG/HR Pantoprazole Sodium 80 mg/ 100 mls @ 100 mls/hr 03/09/24 19:01 Sodium Chloride IV 03/09/24 20:00 ONCE ONE Pantoprazole Sodium 80 mg/ 100 mls @ 10 mls/hr 03/09/24 20:15 03/09/24 19:14 Sodium Chloride IV 03/12/24 20:14 10 mls/hr .Q10H MAYANK Administration Lactated Ringer's 1,000 mls @ 999 mls/hr 03/09/24 19:03 Lactated Ringer's 1000 Ml Bag IV 03/09/24 20:03 .Q1H1M ONE Discontinued Medications Generic Name Dose Route Start Last Admin Trade Name Rosa PRN Reason Stop Dose Admin Octreotide Acetate 50 mcg 03/09/24 19:02 Octreotide 100 Mcg/Ml 1ml Amp IV 03/09/24 19:03 ONCE ONE Ondansetron HCl 8 mg 03/09/24 19:03 Ondansetron 4mg/2ml Vial IV 03/09/24 19:04 ONCE ONE ORDERS Category Date Time Status Type and Screen Stat BBK 03/09/24 19:09 Results Activated Partial Thrombo Time Stat Lab 03/09/24 19:09 Received Complete Blood Count Auto Diff Stat Lab 03/09/24 19:09 Completed Comprehensive Metabolic Panel Stat Lab 03/09/24 19:09 Received Prothrombin Time INR Stat Lab 03/09/24 19:09 Received Medical Decision Narrative: In summary, this patient is a 23-year-old male presenting to the Emergency Department for evaluation of likely esophageal variceal bleed with massive hematemesis. Differential diagnoses considered include but are not limited to esophageal variceal bleed, hemorrhagic shock, symptomatic anemia. Ruling out the most morbid conditions drove assessment. I reviewed patient's past medical records and noted multiple previous evaluations in the ED as per HPI for similar issues.. Patient arrives critically ill with hypotension, tachycardia, pallor, and diaphoresis. He has a large bucket of frankly bloody emesis. Lab work was sent and patient was emergently initiated on resuscitation with 2 units of uncrossed matched blood as well as 2 L of IV fluids. He was given an octreotide bolus and drip and PPI bolus and drip. He was also given 8 mg of IV Zofran. I had an interactive discussion with the fellow (Mague) at [facility] who advised that they wanted the patient to transfer there as direct admit. We initiated conversations with transfer center and had an interactive discussion with ED physician who accepted the patient, then they notified us the patient would be a direct admit. I had an interactive discussion with Dr. Lodya Chery who advised she was floor and patient would have to go to PICU. Given this, they got PICU on the phone. After interactive discussion, Dr. Mckeon accepted the patient. Patient's pressures and HR improved after fluid resuscitation and blood product. He felt much better after initiation of octreotide, PPI, and zofran. Flight crew contacted immediately after acceptance of patient, and flight was arranged for patient emergently to [facility]. Hemoglobin resulted at 8.9 just prior to transfer, and this was prior to another episode of large volume hematemesis. Patient was transferred in stable but critical condition with blood product resuscitation ongoing. Critical Care Critical Care Time Critical Care Time: Yes Attestation: On , the high probability of a clinically significant, sudden or life threatening deterioration of the following system(s) required my full and direct attention, intervention and personal management. The time I documented below is in addition to time spent performing reported procedures but includes the following listed in this critical care notation. Total Time Total Critical Care Time: 30
[2024-03-09] MEDS: ONDANSETRON 4MG/2ML VIAL 8 MG IV (19:10)
--- NOTE | 2024-03-09 19:11 | PC.NURSE ---
Spoke with sera at [facility] pharmacy, verified drip rates and bolus dose.
--- NOTE | 2024-03-09 19:11 | PC.NURSE ---
Father signed blood transfusion consent for emergent blood, patient verbalized understanding.
[2024-03-09] MEDS: OCTREOTIDE ACETATE 500 MCG in 0.9 % SODIUM CHLORIDE 250 ML 25.5 MCG IV (19:13)
[2024-03-09] MEDS: PANTOPRAZOLE SODIUM 80 MG in 0.9 % SODIUM CHLORIDE 100 ML 10 MG IV ×2 (19:14→19:33)
[2024-03-09 19:15] VITALS: BP 114/60; PULSE 98; O2SAT 97
[2024-03-09 19:17] VITALS: BP 103/52; PULSE 97; O2SAT 97
--- NOTE | 2024-03-09 19:20 | PC.NURSE ---
Connected Unit 1 of untyped/uncrossed emergent blood to right ac access. Immediate transfusion began without any side effects noted. Multiple RN's at bedside infusing and monitoring vss. for patient stability. Connected unit 2 of untyped and uncrossed blood to right hand access. Patient tolerated well. Monitoring continues. VSS at this time. Patient is awake talking, interacting.
[2024-03-09 19:23] LABS: Basophils # 0.1 K/mm3 (0-0.2); Basophils % 0.7 % (0.1-2.0); Eosinophils # 0.3 K/mm3 (0.0-0.4); Eosinophils % 2.5 % (0.1-12.0); Hematocrit 27.5 % (42.0-52.0); Hemoglobin 8.9 g/dL (14.1-18.0); Lymphocytes # 3.3 K/mm3 (0.7-4.5); Lymphocytes % 33.6 % (10-50); Mean Corpuscular HGB Conc 32.3 g/dL (31.8-35.4); Mean Corpuscular Hemoglobin 26.6 pg (27.0-31.2); Mean Corpuscular Volume 82.3 fl (80-94); Mean Platelet Volume 9.8 fl (7.4-10.4); Monocytes # 0.9 K/mm3 (0.1-1.0); Monocytes % 9.4 % (1.7-9.3); Neutrophils # 5.3 K/mm3 (1.8-7.8); Neutrophils % 53.8 % (37.0-80.0); Platelet Count 190 K/mm3 (142-424); Red Blood Count 3.34 M/mm3 (4.60-6.20); Red Cell Distribution Width 15.3 % (11.5-17.5); White Blood Count 9.9 K/mm3 (4.8-10.8)
--- NOTE | 2024-03-09 19:29 | PC.NURSE ---
[employer] has landed. [employer] shift supervisor & staff holding traffic
[2024-03-09 19:30] VITALS: BP 109/63; PULSE 101; O2SAT 98
[2024-03-09 19:30] LABS: Chloride 105 mmol/L (98-107); Potassium 3.6 mmoL/L (3.5-5.1); Sodium 136 mmol/L (136-145)
[2024-03-09 19:32] VITALS: BP 102/56; PULSE 89; O2SAT 96
[2024-03-09 19:33] LABS: Alanine Aminotransferase 36 U/L (12-78); Albumin Level 3.2 g/dl (3.5-5.0); Albumin/Globulin Ratio 1.3 (1.1-1.8); Alkaline Phosphatase 55 U/L (38-126); Anion Gap 8.6 mEq/L (5-15); Aspartate Amino Transferase 43 U/L (17-59); Bilirubin,Total 0.9 mg/dl (0.2-1.3); Blood Urea Nitrogen 12 mg/dl (9-20); Calcium 8.2 mg/dl (8.4-10.2); Carbon Dioxide 26 mmol/L (22.0-30.0); Creatinine Clearance Estimated 136 mL/min (50-200); Estimated Glomerular Filt Rate 103 ml/min (>60); GFR (African American) 124 ML/MIN (>60); Globulin 2.4 g/dL (1.3-3.2); Glucose 109 mg/dl (74-100); Total Protein,Serum 5.6 g/dl (6.3-8.2)
[2024-03-09] MEDS: OCTREOTIDE 100 MCG/ML 1ML AMP 50 MCG IV (19:36)
[2024-03-09 19:37] LABS: Activated Partial Thrombo Time 27.7 seconds (22.8-30.6); INR 1.27 (0.9-1.1); Prothrombin Time 13.5 seconds (10.1-12.5)
[2024-03-09] MEDS: CEFTRIAXONE SODIUM 2 GM in 0.9 % SODIUM CHLORIDE 100 ML IV (19:38)
--- NOTE | 2024-03-09 19:40 | PC.NURSE ---
Late Entry: 1900 pt escorted back to ER trauma room 2. Dr. Roblero & Keisha Marin RN, Demetria Mota RN, Kristen Brock RN, and Salima Lynch RN at bedside starting 2 lines. [address] Roblero for Protonix gtt & bolus, Octreotide bolus & gtt, Zofran 8mg IVP, and LR 1 L bolus. 1902 [employer] declined d/t weather & flight crew unavailable 1905 [employer] [place] [facility] flight crew accepted and states [address] Roblero s/w Dr. Alamo. 1906 force adjustment supervisor notified of incoming flight crew in 19 min. 1910 MD Roblero would like 2 units of uncross-matched blood given emergently. Lab notified of this. 1924 MD Roblero s/w d/t they are going to direct admit the patient and need to speak to another accepting MD. 1934 Attempted to call report to , nurse states we can't report until change of shift . They were notified that Flight team is here and is being transferred to their stretcher now. states we will call back
[2024-03-09 19:45] VITALS: BP 102/56; PULSE 89; RESP 21; TEMP 36.5; O2SAT 96
--- NOTE | 2024-03-09 19:50 | PC.NURSE ---
Williams from called to obtain report. He spoke with Ashley.
== END 2024-03-09 20:41 | disposition short-term general hospital (02) ==
PROVIDERS: Emergency Provider Emergency Medicine; PCP Family Medicine
DX: I85.01 Esophageal varices with bleeding (principal); R57.8 Other shock; K92.0 Hematemesis
CPT/HCPCS: 36430; 80053; 85025; 85610; 85730; 86850; 96365; 96375; 99291; J0696; J2354; J2405; P9016

== ENCOUNTER 2025-02-19 12:59 | Outpatient (CLI) | payer BC, SELFPAY ==
[2025-02-19 13:23] LABS: Basophils % 0.9 % (0.1-2.0); Eosinophils # 0.2 Kmm3 (0.0-0.4); Hematocrit 33.4 % (42.0-52.0); Hemoglobin 10.7 g/dL (14.1-18.0); Lymphocytes % 29.6 % (10-50); Mean Corpuscular Hemoglobin 22.5 pg (27.0-31.2); Mean Corpuscular Volume 70.3 fl (80-94); Monocytes # 0.5 K/mm3 (0.1-1.0); Neutrophils # 1.6 K/mm3 (1.8-7.8); Neutrophils % 50.2 % (37.0-80.0); Nucleated Red Blood Cells # 0 10^3/uL; Nucleated Red Blood Cells % 0 %; Platelet Count 63 K/mm3 (142-424); Red Blood Count 4.75 M/mm3 (4.60-6.20); Red Cell Distribution Width 15.7 % (11.5-17.5); Red Cell Distribution Width-SD 39.2 fL; White Blood Count 3.2 K/mm3 (4.8-10.8)
[2025-02-19 13:54] LABS: INR 1.31 (0.9-1.1); Prothrombin Time 14.3 seconds (10.1-12.5)
[2025-02-19 14:49] LABS: Alanine Aminotransferase 55 U/L (12-78); Albumin Level 2.7 g/dl (3.5-5.0); Alkaline Phosphatase 89 U/L (38-126); Aspartate Amino Transferase 59 U/L (17-59); Bilirubin,Indirect 1.1 mg/dL (0.0-0.9); Bilirubin,Total 1.1 mg/dl (0.2-1.3); Bilirubin,Unconjugated 1.1 mg/dL (0.0-1.1); Total Protein,Serum 5.7 g/dl (6.3-8.2)
[2025-02-21 07:38] LABS: AFP, Tumor Marker 2.1 ng/mL (0.0-5.7)
== END 2025-02-19 23:59 | disposition home or self-care (01) ==
PROVIDERS: Visit Provider Radiology Diagnostic Radiology
DX: Z95.828 Presence of other vascular implants and grafts (principal)
CPT/HCPCS: 36415; 80076; 82105; 85025; 85610

== ENCOUNTER 2025-04-29 15:27 | Outpatient (CLI) | payer BC, SELFPAY ==
--- OUTSIDE RECORDS SUMMARY | 2004-12-10 01:00 | XMS_ITS | Encounter Summary ---
Author Organization [facility] Address [address] [place] [address] Care Team Providers Care Technology Coordinator Name Role Phone Unavailable Primary Care Provider Unavailabl e Encounter Details Date Type Department Care Team (Late st Contact Info) Description 12/10/2004 Hospital Encounter [facility] Department of Radiology [address] [place] [phone] Social History Tobacco Use Types Packs/Day Years Used Date Smoking Tobacco: Never Smokeless Tobacco: Never Alcohol Use Standard Drinks/Week Comments No 0 (1 standard drink = 0.6 oz pur e alcohol) Intimate Partner Violence Answer Date R ecorded If you are in a relationship , do you feel safe in that relationship? Not currently in a relationship 03/09/2024 If you are in a relationship , do you feel safe in that relationship? Not currently in a relationship 03/09/2024 Depression Answer Date Recorded PHQ-2 Score 0 10/25/2023 Safety and Environment Answer Date Daniel rded Do you have any concerns of physical abuse, sexual abuse, or neglect of your child? No 03/09/2024 Adult hurting you or family (-18) Not on file 03/09/2024 Someone touched you in a sexual way? (-18) Not on file 03/09/2024 Is someone hurting your or your family? No 03/09/2024 Historical abuse worry Not on file If you have firearms in the home, are they all in locked storage AND unloaded? Not on file 03/09/2024 Adolescent Education and Socialization Answer Date Recorded Grades Are Mostly Not on file 12/11/2024 Supplemental Education Services None 12/11/2024 Getting School Help Needed Not on file 12/11 Suspensions/Expulsions (this academic year) Not on file 12/11/2024 School Absences Not on file 12/11/2024 Peer Relationships Not on file 12/11/2024 Education Answer Date Recorded What is the highest level of school you have completed or the highest degree you have received? Associate degree: academic program 05/02/2019 Sex and Gender Information Value Date Recorded Sex Assigned at Not on file Legal Sex Male 5:17 AM EST Gender Identity Not on file Sexual Orientation Not on file Occupation Industry Job Start Date Job End Date student Not on file Not on file Not on file documented as of this encounter Plan of Treatment Not on file documented as of this encounter Visit Diagnoses Not on filedocumented in this encounter
--- OUTSIDE RECORDS SUMMARY | 2004-12-14 01:00 | XMS_ITS | Encounter Summary ---
Author Organization [facility] Address [address] [place] [address] Care Team Providers Care Sr. Vendor Management Associate Name Role Phone Unavailable Primary Care Provider Unavailabl e Encounter Details Date Type Department Care Team (Late st Contact Info) Description 12/14/2004 Hospital Encounter [facility] Division of Pediatric General and Thoracic Surgery [address] [place] [phone] Social History Tobacco Use Types Packs/Day [...]
--- OUTSIDE RECORDS SUMMARY | 2005-03-04 | XMS_ITS | Encounter Summary ---
Author Organization [facility] Address [address] [place] [address] Care Team Providers Care Medical Scribe Name Role Phone Unavailable Primary Care Provider Unavailabl e Encounter Details Date Type Department Care Team (Late st Contact Info) Description 03/04/2005 Hospital Encounter [facility] Cancer and Blood Diseases [place] [address] [place] [phone] Social History Tobacco Use Types Packs/Day [...]
--- OUTSIDE RECORDS SUMMARY | 2005-03-30 | XMS_ITS | Encounter Summary ---
Author Organization [facility] Address [address] [place] [address] Care Team Providers Care Dolphin Trainer Name Role Phone Unavailable Primary Care Provider Unavailabl e Encounter Details Date Type Department Care Team (Late st Contact Info) Description 03/30/2005 Hospital Encounter [facility] Department of Radiology [address] [place] [phone] Social History Tobacco Use Types Packs/Day [...]
--- OUTSIDE RECORDS SUMMARY | 2005-05-06 | XMS_ITS | Encounter Summary ---
Author Organization [facility] Address [address] [place] [address] Care Team Providers Care Mri Tech Name Role Phone Unavailable Primary Care Provider Unavailabl e Encounter Details Date Type Department Care Team (Late st Contact Info) Description 05/06/2005 Hospital Encounter [facility] Cancer and Blood Diseases [place] [address] [place] [phone] Social History Tobacco Use Types Packs/Day [...]
--- OUTSIDE RECORDS SUMMARY | 2005-06-10 | XMS_ITS | Encounter Summary ---
Author Organization [facility] Address [address] [place] [address] Care Team Providers Care Bicycle Service Technician Name Role Phone Unavailable Primary Care Provider Unavailabl e Encounter Details Date Type Department Care Team (Late st Contact Info) Description 06/10/2005 Hospital Encounter [facility] Cancer and Blood Diseases [place] [address] [place] [phone] Social History Tobacco Use Types Packs/Day [...]
--- OUTSIDE RECORDS SUMMARY | 2005-07-27 | XMS_ITS | Encounter Summary ---
Author Organization [facility] Address [address] [place] [address] Care Team Providers Care Groundwater Consultant Name Role Phone Unavailable Primary Care Provider Unavailabl e Encounter Details Date Type Department Care Team (Late st Contact Info) Description 07/27/2005 Hospital Encounter [facility] Cancer and Blood Diseases [place] [address] [place] [phone] Social History Tobacco Use Types Packs/Day [...] on file documented as of this encounter H&P Notes * Edt, Audit [place] - 10/10/2009 1:53 PM EST documented in this encounter OR Notes * OR Anesthesia - Edt, Audit [place] - 10/10/2009 1:53 PM EST documented in this encounter Miscellaneous Notes * Consent Other - Edt, Audit [place] - 11/27/2009 12:30 PM EST * Consent Informed - Edt, Audit [place] - 10/10/2009 1:53 PM EST documented in this encounter Plan of Treatment Not on file documented as of this encounter Visit Diagnoses Not on filedocumented in this encounter
--- OUTSIDE RECORDS SUMMARY | 2005-08-26 01:00 | XMS_ITS | Encounter Summary ---
Author Organization [facility] Address [address] [place] [address] Care Team Providers Care Subway Train Operator Name Role Phone Unavailable Primary Care Provider Unavailabl e Encounter Details Date Type Department Care Team (Late st Contact Info) Description 08/26/2005 Hospital Encounter [facility] Cancer and Blood Diseases [place] [address] [place] [phone] Social History Tobacco Use Types Packs/Day [...] on file documented as of this encounter Progress Notes * Edt, Audit [place] - 08/25/2005 8:09 AM EST documented in this encounter H&P Notes * Edt, Audit [place] - 10/10/2009 1:52 PM EST documented in this encounter OR Notes * OR Anesthesia - Edt, Audit [place] - 10/10/2009 1:53 PM EST documented in this encounter Miscellaneous Notes * Consent Informed - Edt, Audit [place] - 10/10/2009 1:52 PM EST * Consent Other - Edt, Audit [place] - 05/14/2009 2:03 PM EDT * Operative Report - Abdifatah Benito M.D. - 08/26/2005 9:37 AM ESTDATE OF OPERATION: 08/26/2005 SURGEON(S): Abdifatah Benito M.D. PREOPERATIVE DIAGNOSIS: Acute lymphoblastic leukemia. POSTOPERATIVE DIAGNOSIS: Acute lymphoblastic leukemia. OPERATION PERFORMED: Lumbar puncture with installation of intrathecal chemotherapy. INDICATIONS: The patient is a nearly 5-year-old boy with acute lymphoblastic leukemia who per protocol is due a dose of intrathecal methotrexate today. PROCEDURE: After the induction of anesthesia, the patient was placed in the left lateral decubitus position and the lower lumbar area was prepped with Betadine and draped. A spinal tap was performed at the L3-L4 interspace with a 2-1/2 inch, 22-gauge spinal needle. Clear fluid was obtained and collected for cell count and differential, a total volume of approximately 1 ml. Following this, I gave him 12 mg of methotrexate mixed with 5 ml of normal saline without any complications. The needle and syringe were then removed. The area was cleansed with Io-Gone and then covered with a band-aid. He was returned to the recovery room in excellent condition. Abdiftaah Benito MD Signed via Electronic Authentication by: Abdifatah Benito MD 08/26/2005 14:22 RH/mqa A A Doc #[id number] cc: Abdifatah Benito MD [address] [place] [address] documented in this encounter Plan of Treatment Not on file documented as of this encounter Visit Diagnoses Not on filedocumented in this encounter
--- OUTSIDE RECORDS SUMMARY | 2005-09-06 01:00 | XMS_ITS | Encounter Summary ---
Author Organization [facility] Address [address] [place] [address] Care Team Providers Care Physician Primary Care Sports Medicine Name Role Phone Unavailable Primary Care Provider Unavailabl e Encounter Details Date Type Department Care Team (Late st Contact Info) Description 09/06/2005 Hospital Encounter [facility] Division of Cardiology [address] [place] [phone] Social History Tobacco Use Types Packs/Day [...] No 03/09/2024 Adult hurting you or family (-) Not on file 03/09/2024 Someone touched you in a sexual way? (-) Not on file 03/09/2024 Is someone hurting [...] on file documented as of this encounter Procedure Notes * Edt, Audit [place] - 02/11/2010 9:56 AM EDT * Edt, Audit [place] - 11/27/2009 12:30 PM EST documented in this encounter Miscellaneous Notes * Consent Other - Edt, Audit [place] - 02/11/2010 9:56 AM EDT documented in this encounter Plan of Treatment Not on file documented as of this encounter Visit Diagnoses Not on filedocumented in this encounter
--- OUTSIDE RECORDS SUMMARY | 2005-09-23 01:00 | XMS_ITS | Encounter Summary ---
Author Organization [facility] Address [address] [place] [address] Care Team Providers Care Child Caregiver Name Role Phone Unavailable Primary Care Provider Unavailabl e Encounter Details Date Type Department Care Team (Late st Contact Info) Description 09/23/[address] [facility] Division of Pediatric General and Thoracic Surgery [address] [place] [phone] Social History Tobacco Use Types Packs/Day [...] this encounter H&P Notes * Edt, Audit [place] - 10/10/2009 1:52 PM EST documented in this encounter OR Notes * OR Anesthesia - Edt, Audit [place] - 10/10/2009 1:52 PM EST documented in this encounter Miscellaneous Notes * Consent Other - Edt, Audit [place] - 10/10/2009 1:52 PM EST * Consent Informed - Edt, Audit [place] - 10/10/2009 1:52 PM EST * Consent Informed - Edt, Audit [place] - 10/10/2009 1:52 PM EST * Operative Report - Grant Woodall - 09/23/2005 3:53 PM ESTDATE OF OPERATION: 09/23/2005 SURGEON(S): Grant Woodall M.D. PREOPERATIVE DIAGNOSIS: Acute lymphoblastic leukemia POSTOPERATIVE DIAGNOSIS: Same. OPERATION PERFORMED: Intrathecal chemotherapy and spinal tap as per treatment protocol. INDICATIONS: Acute lymphoblastic leukemia on treatment protocol. PROCEDURE: The patient was brought to the operating room and was given general anesthesia by the Anesthesiology Service. The patient was then placed in the left lateral position. The lower lumbosacral area was palpated and bony markings identified and the area was prepped and draped under aseptic conditions. Spinal fluid was obtained using 2 1/2 22 gauge spinal needle. Clear spinal fluid was collected and sent for analysis as requested by the primary oncology team. The patient was then administered intrathecal chemotherapy Methotrexate as per treatment protocol. At the end of this procedure all needles were disposed of and the area was bandaged. The patient tolerated the procedure well and was sent to the recovery room. Grant Woodall MD Signed via Electronic Authentication by: Grant Woodall MD 09/28/2005 08:11 AM/mqa P A Doc #[id number] cc: Grant Woodall MD [address] [place] [address] * Operative Report - Narinder Radford - 09/23/2005 2:10 PM ESTDATE OF OPERATION: 09/23/2005 SURGEON(S): Narinder Radford M.D., PhD. 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 OPERATION PERFORMED: Placement of left subclavian MediPort, single lumen. INDICATIONS: Chemotherapy. PROCEDURE: After informed written consent was obtained, the patient was taken to the operating room and placed on the operating room table in the supine position where general endotracheal anesthesia was induced. The skin of the left chest was then prepped and draped in the usual sterile fashion and a needle was used to access the left subclavian vein. A wire was placed and a 2 cm skin incision was made and a pocket dissected out for a single-lumen MediPort. A 6.6-Syriac catheter size was chosen and was secured in place at the fascial level using Prolene. The line was tunneled to the venipuncture site and was inserted to a point where the tip came to rest at the junction of the superior vena cava and the atrium. Next, the Hannah's fascia was closed using interrupted fashion using 4-0 Vicryl and the 4-0 Monocryl was used to close the skin in an interrupted fashion. The patient tolerated the procedure well. Catheter aspirated and flushed well and was flushed with 100 units per mL of heparin 3 mL. Chest x-ray is pending. Narinder Radford MD, Ph.D. Signed via Electronic Authentication by: Narinder Radford MD, Ph.D. 09/26/2005 14:03 THI/mqa P A Doc #[id number] cc: Narinder Radford MD, Ph.D. [address] [place] [address] documented in this encounter Plan of Treatment Not on file documented as of this encounter Visit Diagnoses Not on filedocumented in this encounter
--- OUTSIDE RECORDS SUMMARY | 2005-12-02 01:00 | XMS_ITS | Encounter Summary ---
Author Organization [facility] Address [address] [place] [address] Care Team Providers Care Corner Block Cutter Name Role Phone Unavailable Primary Care Provider Unavailabl e Encounter Details Date Type Department Care Team (Late st Contact Info) Description 12/02/2005 Hospital Encounter [facility] Cancer and Blood Diseases [place] [address] [place] [phone] Social History Tobacco Use Types Packs/Day [...] Needed Not on file 12/11 Suspensions/Expulsions (this year) Not on file 12/11/2024 School Absences [...] this encounter Progress Notes * Edt, Audit [place] - 12/14/2005 7:25 AM EST documented in this encounter H&P Notes * Edt, Audit [place] - 11/07/2009 8:52 AM EST documented in this encounter OR Notes * OR Anesthesia - Edt, Audit [place] - 11/07/2009 8:52 AM EST documented in this encounter Miscellaneous Notes * Consent Other - Edt, Audit [place] - 11/27/2009 12:29 PM EST * Consent Informed - Edt, Audit [place] - 11/07/2009 8:52 AM EST * Orders - Edt, Audit [place] - 01/04/2006 5:54 PM EST * Orders - Edt, Audit [place] - 12/02/2005 12:32 PM EST * Orders - Edt, Audit [place] - 12/02/2005 12:30 PM EST * Orders - Edt, Audit [place] - 12/02/2005 12:27 PM EST * Operative Report - Grant Woodall - 12/02/2005 8:07 AM ESTDATE OF OPERATION: 12/02/2005 SURGEON(S): Grant Woodall M.D. PREOPERATIVE DIAGNOSIS: Acute lymphoblastic leukemia. POSTOPERATIVE DIAGNOSIS: Acute lymphoblastic leukemia. OPERATION PERFORMED: Spinal tap and intrathecal chemotherapy 12 mg methotrexate. PROCEDURE: The patient was brought to the operating room and was given general anesthesia by the anesthesiology service. The patient was then placed in the left lateral position. The lower lumbosacral area was exposed. The area was prepped and draped under aseptic conditions. Clear spinal fluid was collected using a 22-gauge, 2-1/2-inch spinal needle. Spinal fluid was collected in collection vials and sent for analysis as requested by the primary oncology team. The patient was then administered 12 mg of methotrexate as per treatment protocol intrathecally, which he tolerated well. At the end of the procedure, the surgical area was cleaned and bandage was applied and all the needles were disposed of. The patient was sent to the recovery room. Grant Woodall MD Signed via Electronic Authentication by: Grant Woodall MD 12/09/2005 08:23 AM/mqa A P Doc #[id number] cc: Grant Woodall MD [address] [place], [place] [phone] documented in this encounter Plan of Treatment Not on file documented as of this encounter Visit Diagnoses Not on filedocumented in this encounter
--- OUTSIDE RECORDS SUMMARY | 2006-02-24 | XMS_ITS | Encounter Summary ---
Author Organization [facility] Address [address] [place] [address] Care Team Providers Care Middleware Administrator Name Role Phone Unavailable Primary Care Provider Unavailabl e Encounter Details Date Type Department Care Team (Late st Contact Info) Description 02/24/2006 Hospital Encounter [facility] Cancer and Blood Diseases [place] [address] [place] [phone] Social History Tobacco Use Types Packs/Day [...] this encounter H&P Notes * Edt, Audit [place] - 11/07/2009 8:53 AM EST documented in this encounter OR Notes * OR Anesthesia - Edt, Audit [place] - 11/07/2009 8:53 AM EST documented in this encounter Miscellaneous Notes * Consent Other - Edt, Audit [place] - 11/07/2009 8:53 AM EST * Consent Informed - Edt, Audit [place] - 11/07/2009 8:53 AM EST * Orders - Edt, Audit [place] - 04/21/2006 4:50 PM EDT * Orders - Edt, Audit [place] - 04/21/2006 4:26 PM EDT * Orders - Edt, Audit [place] - 03/24/2006 2:51 PM EDT * Operative Report - Grant Woodall - 02/24/2006 6:51 AM EDTDATE OF OPERATION: 02/24/2006 SURGEON(S): Grant Woodall M.D. PREOPERATIVE DIAGNOSIS: Acute lymphoblastic leukemia. POSTOPERATIVE DIAGNOSIS: Same. OPERATION PERFORMED: Spinal tap and intrathecal chemotherapy, 12 mg methotrexate as per treatment protocol. INDICATIONS: Acute lymphoblastic leukemia on treatment protocol. PROCEDURE: The patient was brought to the operating room and was given general anesthesia by the anesthesiology service. The patient was then placed in the left lateral position. The lower lumbosacral area was exposed and bony markings were palpated and identified. The area was prepped and draped under aseptic conditions. Clear spinal fluid was collected using a 22-gauge, 2-1/2-inch spinal needle. The spinal fluid was collected and sent for analysis as requested by the primary oncology team. The patient was then administered 12 mg of methotrexate, as per treatment protocol, which he tolerated the procedure well. At the end of the procedure, the needles were disposed of, the surgical area was cleaned, bandage was applied, and the patient was sent to the recovery room. Grant Woodall MD Signed via Electronic Authentication by: Grant Woodall MD 02/25/2006 15:40 AM/mqa A P Doc #[id number] cc: Grant Woodall MD [address] [place], [place] [phone] documented in this encounter Plan of Treatment Not on file documented as of this encounter Visit Diagnoses Not on filedocumented in this encounter
--- OUTSIDE RECORDS SUMMARY | 2006-05-20 | XMS_ITS | Encounter Summary ---
Author Organization [facility] Address [address] [place] [address] Care Team Providers Care Health Center Manager Name Role Phone Unavailable Primary Care Provider Unavailabl e Encounter Details Date Type Department Care Team (Late st Contact Info) Description 05/20/2006 Hospital Encounter [facility] Cancer and Blood Diseases [place] [address] [place] [phone] Social History Tobacco Use Types Packs/Day [...] this encounter H&P Notes * Edt, Audit [place] - 11/07/2009 8:53 AM EST documented in this encounter OR Notes * OR Anesthesia - Edt, Audit [place] - 11/07/2009 8:53 AM EST documented in this encounter Miscellaneous Notes * Consent Other - Edt, Audit [place] - 02/11/2010 9:56 AM EDT * Consent Informed - Edt, Audit [place] - 11/07/2009 8:53 AM EST * Orders - Edt, Audit [place] - 05/20/2006 4:20 PM EDT * Orders - Edt, Audit [place] - 05/20/2006 12:16 PM EDT documented in this encounter Plan of Treatment Not on file documented as of this encounter Visit Diagnoses Not on filedocumented in this encounter
--- OUTSIDE RECORDS SUMMARY | 2006-08-11 | XMS_ITS | Encounter Summary ---
Author Organization [facility] Address [address] [place] [address] Care Team Providers Care Registry Nurse Name Role Phone Unavailable Primary Care Provider Unavailabl e Encounter Details Date Type Department Care Team (Late st Contact Info) Description 08/11/2006 Hospital Encounter [facility] Cancer and Blood Diseases [place] [address] [place] [phone] Social History Tobacco Use Types Packs/Day [...] this encounter H&P Notes * Edt, Audit [place] - 05/21/2008 2:20 PM EDT documented in this encounter Miscellaneous Notes * Miscellaneous - Edt, Audit [place] - 12/18/2007 12:19 PM EST documented in this encounter Plan of Treatment Not on file documented as of this encounter Visit Diagnoses Not on filedocumented in this encounter
--- OUTSIDE RECORDS SUMMARY | 2007-01-26 | XMS_ITS | Encounter Summary ---
Author Organization [facility] Address [address] [place] [address] Care Team Providers Care Utility Aircrewman Name Role Phone Unavailable Primary Care Provider Unavailabl e Encounter Details Date Type Department Care Team (Late st Contact Info) Description 01/26/2007 Hospital Encounter [facility] Cancer and Blood Diseases [place] [address] [place] [phone] Social History Tobacco Use Types Packs/Day [...] on file documented as of this encounter Procedures Procedure Name Priority Date/Time Associated Diagnosis Comments CSF DIFF Routine 01/26/2007 7:[address] Routine 01/26/2007 7:44 AM EDT CYTOLOGY REPORT Routine 01/26/2007 7:44 AM EDT RENAL (KIDNEY) PROFILE Routine 01/26/2007 7:00 AM EDT PHOSPHORUS (PHOSPHATE) Routine 01/26/2007 7:00 AM EDT MAGNESIUM Routine 01/26/2007 7:00 AM EDT HEPATIC PROFILE (NO GGT) Routine 01/26/2007 7:00 AM EDT IGG STAT 01/26/2007 7:00 AM EDT CALCIUM BLOOD Routine 01/26/2007 7:00 AM EDT documented in this encounter Results * CYTOLOGY REPORT (01/26/2007 7:44 AM EDT) 01/26/2007 7:44 AM EDT Narrative [facility] - 01/27/2007 5:19 PM EDT * * Accession #: Collected: Received: Verified: [id number] 01/26/2007 01/27/2007 01/27/07 * * * Cytology Report * * * * Clinical Diagnosis * * Not provided * Specimen * * (A) CSF smear * Gross * * (A) Received from the Clinical Lab is one Hinojosa stained slide. * Adequecy * * Adequate * Microscopic * * (A) 1 Hinojosa stain: The slide shows a few lymphocytes and monocytes. * Diagnosis * * (A) CSF smear, cytology: A few benign mononuclear cells. * Reviewed with: Lisa Phelps * The Attending Pathologist has personally examined the specimen(s) and concurs with the final report. * Torres Sommer, Pathologist (electronic signature) Date verified: 01/27/07 * * * * Torres Sommer M.D. PATHOLOGY/CYTOLOGY ORDERABL ES Final Result [facility] [address] [place] [address], * CSF DIFF (01/26/2007 7:44 AM EDT) CSF LYMPHS 73 % [facility] CSF MONOS 27 % [facility] # MAN CLS CNTD 30 CELLS [facility] 01/26/2007 7:44 AM EDT 01/26/2007 7:44 AM EDT Abdifatah Benito M.D. BODY FLUIDS AND STOOLS ORDERABLES Final Result [facility] * (ABNORMAL) CSF CT (01/26/2007 7:44 AM EDT) CSF APPEARANCE CLEAR [facility] CSF RBC COUNT 1(H) 0 - 0 CMM [facility] CSF WBC COUNT 2 0 - 4 CMM [facility] 01/26/2007 7:44 AM EDT 01/26/2007 7:44 AM EDT Abdifatah Benito M.D. BODY FLUIDS AND STOOLS ORDERABLES Final Result Performing Organization Address [facility] de Phone Number [facility] * IGG (01/26/2007 7:00 AM EDT) IGG [phone] - 1379 MG/DL [facility] 01/26/2007 7:00 AM EDT 01/26/2007 7:00 AM EDT us Abdifatah Benito M.D. CHEMISTRY ORDERABLES F inal Result Performing Organization Address [facility] de Phone Number [facility] * (ABNORMAL) LIVER PROFILE (01/26/2007 7:00 AM EDT) ALBUMIN LEVEL 4.3 3.4 - 5.2 G/DL [facility] TOTAL PROTEIN LEVEL 7.3 5.9 - 8.1 GM/DL [facility] AST 162(H) 15 - 60 UNIT/L [facility] ALT 216(H) 10 - 35 UNIT/L [facility] ALK PHOS 270 150 - 420 UNIT/L [facility] BILI CONJUGATED 0.0 0.0 - 0.1 MG/DL [facility] BILI UNCONJUGATED 0.7 0.0 - 1.1 MG/DL [facility] A/G RATIO 1 [facility] GLOBULIN 3.0 GM/DL [facility] GGT 30 10 - 30 UNIT [facility] 01/26/2007 7:00 AM EDT 01/26/2007 7:00 AM EDT us Abdifatah Benito M.D. CHEMISTRY ORDERABLES F inal Result Performing Organization Address [facility] de Phone Number [facility] * MAGNESIUM (01/26/2007 7:00 AM EDT) MAGNESIUM LEVEL 1.7 1.5 - 2.3 MG/DL [facility] 01/26/2007 7:00 AM EDT 01/26/2007 7:00 AM EDT Abdifatah Benito M.D. CHEMISTRY ORDERABLES F inal Result [facility] * PHOSPHORUS (PHOSPHATE) (01/26/2007 7:00 AM EDT) PHOSPHORUS (PHOSPHATE) 5.6 3.7 - 5.6 MG/DL [facility] 01/26/2007 7:00 AM EDT 01/26/2007 7:00 AM EDT Abdifatah Benito M.D. CHEMISTRY ORDERABLES F inal Result Performing Organization Address City/[facility]/ZIP Co de Phone Number [facility] * CALCIUM BLOOD (01/26/2007 7:00 AM EDT) CALCIUM 9.9 8.8 - 10.1 MG/DL [facility] 01/26/2007 7:00 AM EDT 01/26/2007 7:00 AM EDT Abdifatah Benito M.D. CHEMISTRY ORDERABLES F inal Result Performing Organization Address [facility]/ZIP Co de Phone Number [facility] * RENAL (KIDNEY) PROFILE (01/26/2007 7:00 AM EDT) SODIUM LEVEL 139 134 - 143 MMOL/L [facility] POTASSIUM LEVEL 4.5 3.3 - 4.6 MMOL/L [facility] CHLORIDE LEVEL 106 96 - 109 MMOL/L [facility] CO2 LEVEL 27 22 - 30 MMOL/L [facility] ANION GAP 6 4 - 15 MMOL/L [facility] BUN 10 7 - 17 MG/DL [facility] CREATININE LEVEL 0.4 0.2 - 0.7 MG/DL [facility] B/C RATIO 25 <25 [facility] 01/26/2007 7:00 AM EDT 01/26/2007 7:00 AM EDT Abdifatah Benito M.D. CHEMISTRY ORDERABLES F inal Result [facility] documented in this encounter Visit Diagnoses Not on filedocumented in this encounter
--- OUTSIDE RECORDS SUMMARY | 2007-05-18 | XMS_ITS | Encounter Summary ---
Author Organization [facility] Address [address] [place] [address] Care Team Providers Care Associate Software Engineer Name Role Phone Unavailable Primary Care Provider Unavailabl e Encounter Details Date Type Department Care Team (Late st Contact Info) Description 05/18/2007 Hospital Encounter [facility] Cancer and Blood Diseases [place] [address] [place] [phone] Social History Tobacco Use Types Packs/Day [...]
--- OUTSIDE RECORDS SUMMARY | 2007-05-18 | XMS_ITS | Encounter Summary ---
Author Organization [facility] Address [address] [place] [address] Care Team Providers Care Mill Crane Operator Name Role Phone Unavailable Primary Care Provider Unavailabl e Encounter Details Date Type Department Care Team (Late st Contact Info) Description 05/18/2007 Hospital Encounter [facility] Cancer and Blood Diseases [place] [address] [place] [phone] Social History Tobacco Use Types Packs/Day [...]
--- OUTSIDE RECORDS SUMMARY | 2007-05-18 14:18 | XMS_ITS | Encounter Summary ---
Author Organization [facility] Address [address] [place] [address] Care Team Providers Care Principal Librarian Name Role Phone Unavailable Primary Care Provider Unavailabl e Encounter Details Date Type Department Care Team (Latest Contact Info) Description 05/18/2007 2:18 PM EDT Hospital Encounter [address] [phone] Robert Vail M.D. 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
--- OUTSIDE RECORDS SUMMARY | 2025-02-26 14:30 | XMS_ITS | Encounter Summary ---
Author Organization [facility] Address [address] [place] [address] Care Team Providers Care Retail Merchandising Coordinator Name Role Phone Abilio JOHNSON MD, Arsh Primary Care Provide r Eli Aggarwal MD Unavailable [phone] Rainer Cruz MD Unavailable Cathie Elizabeth MD Unavailable [phone] Source Comments This information has been disclosed to you from confidential records protectfrom disclosure by state law. You shall make no further disclosure of thisinformation without the specific, written, and informed release of theindividual to whom it pertains, or as otherwise permitted by law. A generalauthorization for the release of medical or other information is not sufficientfor the purposes of the release of HIV test results or diagnoses. [id number] Health Reason for Visit * Reason Comments Follow-up History of liver fib rosis with variceal bleeding, now status post TIPS. Encounter Details Date Type Department Care Team (Latest Contact Info) Description 02/26/2025 2:30 PM EDT Office Visit [facility] Interventional Radiology at [facility] Office [address] [facility] [address] [place] [phone] Viral Cooper MD [address] [address] Portal hypertension (CMS-HCC) (Primary Dx); Bleeding esophageal varices, unspecified esophageal varices type (CMS-HCC); Cryptogenic cirrhosis (CMS-HCC); S/P TIPS (transjugular intrahepatic portosystemic shunt) Social History Tobacco Use Types Packs/Day Years Used Date Smoking Tobacco: Never Smokeless Tobacco: Never Alcohol Use Standard Drinks/Week Comments Never 0 (1 standard drink = 0.6 oz pur e alcohol) Utilities Answer Date Recorded In the past 12 months has th e electric, gas, oil, or water company threatened to shut off services in your home? No 03/11/2024 AUDIT-C Answer Date Recorded Q1: How often do you have a drink containing alcohol? Never 03/11/2024 Q2: How many drinks containi ng alcohol do you have on a typical day when you are drinking? Patient does not drink Q3: How often do you have si x or more drinks on one occasion? Never 03/11/2024 PHQ-2 Answer Date Recorded PHQ-2 Total Score 0 02/26/2025 Hunger Vital Sign Answer Date Recorded Within the past 12 months, y ou worried that your food would run out before you got the money to buy more. Never true 03/11/20 24 Within the past 12 months, t he food you bought just didn't last and you didn't have money to get more. Never true 03/11/2024 PRAPARE - Transportation Answer Date Re corded In the past 12 months, has l ack of transportation kept you from medical appointments or from getting medications? No 02/21 In the past 12 months, has l ack of transportation kept you from meetings, work, or from getting things needed for daily living? No 03/11/2024 Housing Stability Vital Sign Answer Jonny e Recorded In the last 12 months, was t here a time when you were not able to pay the mortgage or rent on time? No 03/11/2024 In the past 12 months, how m any times have you moved where you were living? 0 03/11/2024 At any time in the past 12 m [facility], were you homeless or living in a longterm (including now)? No 03/11/2024 Yearly Questionnaire Answer Date Record ed Do you need any assistance w ith obtaining housing, meals, medication, transportation or medical equipment? No 02/26 Assistance needed for: Not on file Yearly Questionnaire Answer Date Record ed Do you need any assistance w ith obtaining housing, meals, medication, transportation or medical equipment? No 02/26 Assistance needed for: Not on file Yearly Questionnaire Answer Date Record ed Do you need any assistance w ith obtaining housing, meals, medication, transportation or medical equipment? No 02/26 Assistance needed for: Not on file 5 Sex and Gender Information Value Date Recorded Sex Assigned at Male 03/11/2024 9:37 AM EDT Legal Sex Male 9:37 AM EDT Gender Identity Male 03/11/2024 9:37 AM EDT Sexual Orientation Straight 04/21/2025 5: 33 AM EDT documented as of this encounter Last Filed Vital Signs Vital Sign Reading Time Taken Comments Blood Pressure - - Pulse 58 02/26/2025 1:38 PM EDT Temperature 36.5 C (97.7 F) 02/26/2025 1:38 PM EDT Respiratory Rate 16 02/26/2025 1:38 PM EDT Oxygen Saturation 100% 02/26/2025 1:38 PM EDT Inhaled Oxygen Concentration 100% 02/26/2025 1 :38 PM EDT Weight 80 kg (176 lb 6.4 oz) 02/26/2025 1:38 PM EDT Height 175.3 cm (5' 9 ) 02/26/2025 1:38 PM EDT Body Mass Index 26.05 02/26/2025 1:38 PM EDT documented in this encounter Progress Notes * Viral Cooper MD - 02/26/2025 2:30 PM EDT History of Present Illness: Kwame Middleton is a 24 y.o. male Chief Complaint Patient presents with Follow-up History of liver fibrosis with variceal bleeding, now status post TIPS. HPI Mr Kwame Middleton is a very pleasant 24 y.o. 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 He was in remission. He had liver biopsy obtained in 2011 and demonstrated moderate (Kortney 3/6) fibrosis. This was manifested with splenomegaly varices and remained well compensated up until 03/01/24 when hepresented in hemorrhagic shock from an esophageal variceal bleed. This was controlled endoscopically with banding. He was stable and with no clinical signs of continued bleeding and was discharged on03/04/2024. He then [facility] 03[facility]2024 with recurrent hematemesis. EGD on 03/10/2024 showed One grade 3 varix that was well epithelialized, was banded x 1 distally and x1 more proximally Two grade 2 varices, one with red edith sign was banded x1 proximally. Several old sites of banding that were scarred . Repeat EGD on 03/11/2024 showed: 2 bands from yesterday's procedure were in place, with one band missing, with stigmata of recent bleeding. No active bleeding. Varices banded yesterday were dark in color without signs of recent bleeding. Several old sites of banding that were scarred. No active bleeding in esophagus or stomach. However signs of portal hypertensive gastropathy. He received 5 units of pRBCs, 2 units platelets, 1 unit of FFP, and 1 unit of Cryo in the last 24 hours prior to transfer. He was transferred to the MICU at [facility] on 03/11/2024 for TIPS evaluation. As of 03/12/2024, there were bloody bowel movements ongoing through night; and he received 2 units PRBCs. MELD score as of 03/12/2024 was 13. Echo was performed prior to TIPS. There was no significant history of hepatic encephalopathy. Decision was made to proceed with TIPS that was performed by Dr. Mack on 03/14/2024: IMPRESSION: 1. Technically successful TIPS using a 8-10 mm x 9 cm (7 cm covered + 2 cm uncovered) Viatorr stentacross the right hepatic vein and portal vein confluent. This decreased the portal-systemic gradient from 12 to 3 mmHg. The TIPS stent diameter was set at an 8 mm. 2. Large gastroesophageal varices off of the left gastric vein. Successful embolization using [place]. 3. Successful peritoneal drainage catheter placement. He did well after that and there were no more variceal bleeding. He was discharged on lactulose. He presents for follow-up. No recurrent variceal bleeding, effusion or ascites. He currently works at a [employer]. He does not feel that he needs lactulose at the moment. There is decrease in size of the umbilical vein. Precautions have been reviewed with the patient. Histories: He has no past medical history on file. He has no past surgical history on file. His family history includes Kidney Cancer in his brother. He reports that he has never smoked. He has never used smokeless tobacco. He reports that he does not drink alcohol and does not use drugs. Review of Systems Constitutional: Negative for chills, diaphoresis, fatigue and fever. HENT: Negative for drooling, facial swelling, mouth sores, nosebleeds, sore throat, trouble swallowing and voice change. Respiratory: Negative for cough, choking, chest tightness and shortness of breath. Cardiovascular: Negative for chest pain, palpitations and leg swelling. Gastrointestinal: Negative for abdominal distention, abdominal pain, anal bleeding, bloating, bloodin stool, constipation, diarrhea, heartburn, nausea, rectal pain and vomiting. Genitourinary: Negative for flank pain and hematuria. Musculoskeletal: Negative for back pain, gait problem and neck pain. Allergies: Morphine Medications: Outpatient Encounter Medications as of 02/26/2025 Medication Sig Dispense Refill fexofenadine (CESAR ODT) 30 MG disintegrating tablet Take 1 tablet (30 mg total) by mouth daily as needed. lactulose (CHRONULAC) 10 gram/15 mL solution Take 30 mLs (20 g total) by mouth 3 times a day as needed (Use if you have not had a bowel movement in 24 hours). (Patient not taking: Reported on 02/26/2025) 946 mL 0 lansoprazole (PREVACID SOLUTAB) 30 MG disintegrating tablet Take 1 tablet (30 mg total) by mouth every morning before breakfast. (Patient not taking: Reported on 02/26/2025) polyethylene glycol (GLYCOLAX) 17 gram/dose powder Mix one cap (17g) with 8 oz of liquid and drink daily as needed (Patient not taking: Reported on 02/26/2025) 238 g 0 senna (SENOKOT) 8.6 mg tablet Take 1 tablet by mouth at bedtime. (Patient not taking: Reported on 02/26/2025) 30 tablet 0 No facility-administered encounter medications on file as of 02/26/2025. Objective: Pulse 58, temperature 97.7 ??F (36.5 ??C), temperature source Oral, resp. rate 16, height 5' 9 (1.753 m), weight 176 lb 6.4 oz (80 kg), SpO2 100%. Physical Exam Constitutional: General: He is awake. Appearance: Normal appearance. He is well-developed and well-groomed. He is not diaphoretic. Cardiovascular: Rate and Rhythm: Normal rate. Pulmonary: Effort: Pulmonary effort is normal. No respiratory distress. Abdominal: General: There is no distension. Tenderness: There is no abdominal tenderness. Musculoskeletal: Right lower leg: No edema. Left lower leg: No edema. Skin: General: Skin is warm and dry. Neurological: Mental Status: He is alert and oriented to person, place, and time. Psychiatric: Attention and Perception: Attention and perception normal. Mood and Affect: Mood and affect normal. Speech: Speech normal. Behavior: Behavior normal. Behavior is cooperative. Thought Content: Thought content normal. Cognition and Memory: Cognition and memory normal. Judgment: Judgment normal. Review of Lab Results: Lab Results Component Value Date HGB 10.7 (A) 02/19/2025 HCT 33.4 (A) 02/19/2025 WBC 3.2 02/19/2025 PLT 63 02/19/2025 INR 1.31 (A) 02/19/2025 PROTIME 14.3 02/19/2025 NA 140 08/31/2024 K 3.4 (L) 08/31/2024 CL 111 (H) 08/31/2024 CO2 25 08/31/2024 GLUCOSE 79 08/31/2024 BUN 8 08/31/2024 CREATININE 0.89 08/31/2024 AST 59 02/19/2025 ALT 57 (H) 08/31/2024 ALKPHOS 89 02/19/2025 PROT 5.7 (A) 02/19/2025 BILITOT 1.1 02/19/2025 ALBUMIN 2.7 02/19/2025 AMMONIA 77 03/11/2024 AFPTM 2.1 02/19/2025 CALCIUM 7.7 (L) 08/31/2024 PHOS 1.5 (L) 08/31/2024 MG 1.7 03/17/2024 Prior Diagnostic Testing: US Duplex Zmg-Zur-Zcbboxe Comp Result Date: 02/26/2025 IMPRESSION: ABDOMEN Stable sonographic appearance of cirrhotic liver with TIPS in place. No focal lesions are seen. No ascites. LIVER DOPPLER Patent TIPS stent with appropriate direction of flow and velocity profile as above.. Report Verified by: Anton White MD at 02/26/2025 1:47 PM EDT US Abdomen Complete Result Date: 02/26/2025 IMPRESSION: ABDOMEN Stable sonographic appearance of cirrhotic liver with TIPS in place. No focal lesions are seen. No ascites. LIVER DOPPLER Patent TIPS stent with appropriate direction of flow and velocity profile as above.. Report Verified by: Anton White MD at 02/26/2025 1:47 PM EDT Impression: History of liver fibrosis decompensated by variceal bleeding, now status post TIPS. Medical Decision Making: Mr Kwame Middleton is a very pleasant 24 y.o. 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 He remained well compensated up until 03/01/24 when he presented in hemorrhagic shock from esophagealvariceal bleed. He then presented [facility] to [facility] on 03/[facility]2024 with recurrent hematemesis. He was transferred to the MICU at [facility] on 03/11/2024 for TIPS evaluation. Decision was made to proceed with TIPS that was performed by Dr. Mack on 03/14/2024. He did well after that and there were no more variceal bleeding. He was discharged on lactulose. He presents for follow-up. When I saw him first on 04/17/2024, we had a very long detailed discussion about hepatic encephalopathy and management of lactulose. We also discussed work and driving limitations. No signs of hepatic encephalopathy. No recurrent variceal bleeding His large dilated umbilical vein has significantly decreased in size almost half the size before the TIPS. We discussed the long-term patency of a TIPS stent is very good. However, ultrasound follow up at the [facility] every 3-6 months will improve the chances of longevity ofthe TIPS. A TIPS stent could require future interventional radiology procedures for dilation or revision of the stent if there is abnormal worsening velocities on TIPS doppler or recurrent of symptoms. Today's ultrasound as compared to the last ultrasound shows stable velocities. No need for TIPS intervention at the moment. Plan for follow-up in 4 months. Plan: Return to clinic in 4 months with repeat TIPS Doppler and labs (CBC, CMP, INR, AFP). Time Spent with Patient: Total time spent on the day of the visit was 32 minutes, including interview of the patient, performing a limited exam, independently reviewing the patients recent and prior radiologic imaging, laboratory results, counseling and educating the patient and family/caregiver with my assessments and plans, and coordination of care. Time spent also includes review of notes from other medical consultants and providers, as well as necessary discussions with other providers. Please see my assessment, medical decision making and plan for details, as well as supportive documentation related to the levelof service for this patient. Greater than 50% of the time was spent educating the patient on my assessment and plan. Counseling/Risk and Benefits: Diet Disease Process, Natural History and Prognosis Exercise Home Instructions and Precautions Following Treatment Patient Education - verbal information and/or phamphlet/literature given to patient Treatment Options Time Table of Follow-up Risks, benefits and treatment options discussed with patient Risk of Proposed Treatment Reviewed actual images with patient and family Radiation Risks Medical Decision Support: Review/order clinical lab tests Review/order radiology tests Review/order other diagnostic or treatment interventions Obtain old records or history from another person Review and summarization of old records Independent review of data - e.g. image - specimen Permanent chart problem/surgery list reviewed Permanent chart chronic med/allergy list reviewed Permanent chart social/family history reviewed Cc PCPs Type Arsh Knox III, MD General Other Patient Care Team Members Relationship Eli Aggarwal MD N/A Rainer Cruz MD Consulting Physician Cathie Elizabeth MD N/A documented in this encounter Plan of Treatment Not on file documented as of this encounter Visit Diagnoses Diagnosis Portal hypertension (CMS-HCC)- Primary Portal hypertension Bleeding esophageal varices, unspecified esophageal varices type (CMS-HCC) Cryptogenic cirrhosis (CMS-HCC) Cirrhosis of liver without mention of alcohol S/P TIPS (transjugular intrahepatic portosystemic shunt) Other postprocedural status documented in this encounter Care Teams Retail Merchandising Coordinator Relationship Specialty Start Date End Date Arsh Knox III, MD [address] [place] [address] PCP - General Family Medicine 5/20/24 Eli Aggarwal MD [facility] [place] [address] Gastroenterology 04/17/24 Rainer Cruz MD [address] [place] [phone] Consulting Physician Gastroenterology 04/17/24 Cathie Elizabeth MD [address] [place] [id number] 04/17/24 documented as of this encounter
--- OUTSIDE RECORDS SUMMARY | 2025-03-01 10:00 | XMS_ITS | Encounter Summary ---
Author Organization [facility] Address [address] [place] [address] Care Team Providers Care Nursing Project Coordinator Name Role Phone Abilio JOHNSON MD, Arsh Primary Care Provide r Eli Aggarwal MD Unavailable [phone] Rainer Cruz MD Unavailable Cathie Elizabeth MD Unavailable [phone] Source Comments This information has been [...] release of HIV test results or diagnoses. [id number] Health Reason for Visit * Reason Comments Follow-up Encounter Details Date Type Department Care Team (Latest Contact Info) Description 03/01/2025 10:00 AM EDT Office Visit [facility] [id number] [place] [address] Rainer Cruz MD [address] [place] [address] S/P TIPS (transjugular intrahepatic portosystemic shunt) (Primary Dx); Bleeding esophageal varices, unspecified esophageal varices type (CMS-HCC); Portal hypertension ([facility]-H[facility]) Social History Tobacco Use Types Packs/Day Years Used Date Smoking Tobacco: Never Smokeless Tobacco: Never Alcohol Use Standard Drinks/Week Comments Never 0 (1 standard drink = 0.6 oz pur e alcohol) Utilities Answer Date Recorded In the past 12 months has th e [employer], gas, oil, or water company threatened to [...] the money to buy more. Never true 03/01/20 25 Within the past 12 months, t he food you bought just didn't last and you didn't have money to get more. Never true 03/01/2025 PRAPARE - Transportation Answer Date Re corded [...] any time in the past 12 m [facility], were you homeless or living in a long term (including now)? No 03/11/2024 Yearly Questionnaire Answer Date Record ed Do you need any assistance w ith obtaining housing, meals, medication, transportation or medical equipment? No 02/26 Assistance needed for: Not on file Yearly Questionnaire Answer Date Record ed Do you need any assistance w ith obtaining housing, meals, medication, transportation or medical equipment? No 02/26 Assistance needed for: Not on file 05/06/202 5 Yearly Questionnaire Answer Date Record ed Do you need any assistance w ith obtaining housing, meals, medication, transportation or medical equipment? No 02/26 Assistance needed for: Not on file Sex and Gender Information Value Date Recorded Sex Assigned at Male 03/11/2024 9:37 AM EDT Legal Sex Male 9:37 AM EDT Gender Identity Male 03/11/2024 9:37 AM EDT Sexual Orientation Straight 04/21/2025 5: 33 AM EDT documented as of this encounter Last Filed Vital Signs Vital Sign Reading Time Taken Comments Blood Pressure 158/66 03/01/2025 9:48 AM EDT Pulse 76 03/01/2025 9:48 AM EDT Temperature - - Respiratory Rate 18 03/01/2025 9:48 AM EDT Oxygen Saturation 99% 03/01/2025 9:48 AM EDT Inhaled Oxygen Concentration 99% 03/01/2025 9 :48 AM EDT Weight 79.5 kg (175 lb 3.2 oz) 03/01/2025 9:48 A M EDT Height 175.3 cm (5' 9 ) 03/01/2025 9:48 AM EDT Body Mass Index 25.87 03/01/2025 9:48 AM EDT documented in this encounter Patient Instructions * Patient Instructions* Merrick Kerr MD - 03/01/2025 10:00 AM EDT - You are doing great - Ultrasound as per radiology - labs next visit - Avoid aspirin, Ibuprofen, Aleeve, Motrin since these medications can increase the risk of bleeding and can cause kidney damage. - Can take Tylenol up to 2000 mg in a 24 hour period. - Complete abstinence from alcohol. - Liver follow up in 9 months documented in this encounter Progress Notes * Merrick Kerr MD - 03/01/2025 10:00 AM EDT Hepatology Follow up HPI: This is a follow up visit for Kwame Middleton, 24 y.o. 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 Patient with PMHx of ALL with chemotherapy related liver fibrosis & portal hypertension. This was well compensated until January 2024 when he started to have recurrent variceal hemorrhage. In February 2024 he was transferred from [facility] to [facility] for TIPSS evaluation. Was admitted to MICU. CTA abdomen/pelvis done on 03/02 showed multiple gastric & esophageal varices among other sequela of portal HTN. Liver biopsy in 2011 showed stage 3 fibrosis. Underwent TIPSS procedure by Dr. Mack on 03/16/2024 with placement of 9 cm and 8-10 mm wide stent in right hepatic vein. HVPG improved from 12 to 3 mm Hg. Gastric and esophageal varices were also embolized. He was also started on lactulose for post TIPSS encephalopathy. GI bleeding stopped after TIPSS He presents today for follow up. Reports feeling well. No new GI/Liver related symptoms. No blood ins tools or black stools. No vomiting. His functional status is good. He is working night shifts in [employer]. No acute issues today Most recent MELD score of 10 from 08/2024. Recent ultrasound in 02/2025 with stable TIPSS in place, no focal lesions. AFP 2.1 Not on any lactulose at this time. 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) Chemotherapy Varicella Allergic rhinitis, cause unspecified Acne Other malignant neoplasm without specification of site Portal hypertension 10/30/2012 Anemia 02/23/2024 Past Surgical History: Surgery Date Site/Laterality Comments HX LAPAROTOMY EXPLORATORY 11/02/2004 Exploratory Laparoscopy, Biopsy of mesenteric lymph node x 3 HX BONE MARROW BIOPSY WITH ASPIRATION 11/20/2004 HX MEDIPORT REMOVAL 03/28/2008 DENTAL REHAB 10/02/2007 LIVER BIOPSY 05/16/2012 Abdomen/N/A HX BONE MARROW BIOPSY WITH ASPIRATION 04/09/2011 Spine Lumbar/N/A HX UPPER ENDOSCOPY WITH BANDING 02/23/2024 Abdomen/N/A HX UPPER ENDOSCOPY WITH BANDING 03/01/2024 Abdomen/N/A HX UPPER ENDOSCOPY 03/01/2024 Abdomen/N/A HX UPPER ENDOSCOPY WITH BANDING 03/10/2024 Abdomen/N/A HX UPPER ENDOSCOPY WITH BANDING 03/11/2024 Abdomen/N/A Allergies: Allergies Allergen Reactions Morphine Hives Medications: Current Outpatient Medications Medication Sig fexofenadine Take 1 tablet (30 mg total) by mouth daily as needed. lactulose Take 30 mLs (20 g total) by mouth 3 times a day as needed (Use if you have not had a bowel movement in 24 hours). lansoprazole Take 1 tablet (30 mg total) by mouth every morning before breakfast. polyethylene glycol Mix one cap (17g) with 8 oz of liquid and drink daily as needed senna Take 1 tablet by mouth at bedtime. No current facility-administered medications for this visit. Physical Examination: Vitals: 03/01/25 0948 BP: 158/66 BP Location: Left upper arm Patient Position: Sitting BP Cuff Size: Regular Pulse: 76 Resp: 18 SpO2: 99% Weight: 175 lb 3.2 oz (79.5 kg) Height: 5' 9 (1.753 m) General: Young male, no apparent distress HENT:Sclera anicteric, moist mucous membranes Neck:Supple Pulmonary:Good air entry b/l, lungs b/l clear to auscultation, Cardiac:RRR, S1 and S2 normal Neuro: Awake, alert, oriented x 3, no asterixis Extremities: Distal pulses 2+, No LE edema Skin: No rash or jaundice Labs: Lab name 08/31/24 1633 02/19/25 1303 HEMOGLOBIN 11.1* 10.7* HEMATOCRIT 32.6* 33.4* MEAN CORPUSCULAR VOLUME 66.7* 70.3* PLATELETS 51* 63 SODIUM 140 -- POTASSIUM 3.4* -- CHLORIDE 111* -- CO2 25 -- BUN 8 -- CREATININE 0.89 -- GLUCOSE 79 -- PHOSPHORUS 1.5* -- ALBUMIN 3.3* 2.7 ALBUMINKID 3.5 -- CALCIUM 7.7* -- AST -- 59 ALT 57* -- BILIRUBIN TOTAL 1.9* 1.1 ALK PHOS 84 89 INR 1.5* 1.31* Assessment and Plan: This is a follow up visit for Kwame Middleton, 24 y.o. 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 - Ascites: none present - Hepatic Encephalopathy: Continue current dose of lactulose - Varices: s/p bleeding w/ TIPSS placed w/ reduction of 12 mmHg to 3 mmHg - HCC: Continue surveillance with ultrasound and AFP every 6 months. Next ultrasound due 08/2024 Liver follow up in 9 months Merrick Kerr MD Gastroenterology and Transplant Hepatology Fellow PGY 6 Division of Digestive Diseases Seen and discussed with Attending Physician, Dr. Cruz * Rainer Cruz MD - 03/01/2025 10:00 AM EDT Attending Physician's Note: I have personally seen and examined the patient, reviewed the chart, imaging and labs and have discussed the case with Dr. Kerr, agree with his note and confirm it. Kwame Middleton, 24 y.o. year old male who is being seen in the liver clinic for management of non-cirrhotic portal hypertension. Patient with PMHx of ALL with chemotherapy related liver fibrosis & portal hypertension. This was well compensated until January 2024 when he started to have recurrent variceal hemorrhage. In February 2024 he was transferred from [facility] to [facility] for TIPSS evaluation. Was admitted to MICU. CTA abdomen/pelvis done on 03/02 showed multiple gastric & esophageal varices among other sequela of portal HTN. Liver biopsy in 2011 showed stage 3 fibrosis. Underwent TIPSS procedure by Dr. Mack on 03/16/2024 with placement of 9 cm and 8-10 mm wide stent in right hepatic vein. HVPG improved from 12 to 3 mm Hg. Gastric and esophageal varices were also embolized. He was also startedon lactulose for post TIPSS encephalopathy. GI bleeding stopped after TIPSS He presents today for follow up. Reports feeling well. No new GI/Liver related symptoms. No blood in stools or black stools. He took lactulose for a little bit after TIPSS (prophylactic) but not taking it anymore. Doppler US from earlier this week was negative. MELD score 10. AFP negative. His functional status is good. He is working night shifts in [employer]. No acute issues today Medications: Current Outpatient Medications Medication Sig fexofenadine Take 1 tablet (30 mg total) by mouth daily as needed. lactulose Take 30 mLs (20 g total) by mouth 3 times a day as needed (Use if you have not had a bowel movement in 24 hours). lansoprazole Take 1 tablet (30 mg total) by mouth every morning before breakfast. polyethylene glycol Mix one cap (17g) with 8 oz of liquid and drink daily as needed senna Take 1 tablet by mouth at bedtime. No current facility-administered medications for this visit. Physical Examination: Vitals: 03/01/25 0948 BP: 158/66 BP Location: Left upper arm Patient Position: Sitting BP Cuff Size: Regular Pulse: 76 Resp: 18 SpO2: 99% Weight: 175 lb 3.2 oz (79.5 kg) Height: 5' 9 (1.753 m) General: Young male, no apparent distress HENT:Sclera anicteric, moist mucous membranes Neck:Supple Neuro: Awake, alert, oriented x 3, no asterixis Extremities: No LE edema Labs: Lab name 08/31/24 1633 02/19/25 1303 HEMOGLOBIN 11.1* 10.7* HEMATOCRIT 32.6* 33.4* MEAN CORPUSCULAR VOLUME 66.7* 70.3* PLATELETS 51* 63 SODIUM 140 -- POTASSIUM 3.4* -- CHLORIDE 111* -- CO2 25 -- BUN 8 -- CREATININE 0.89 -- GLUCOSE 79 -- PHOSPHORUS 1.5* -- ALBUMIN 3.3* 2.7 ALBUMINKID 3.5 -- CALCIUM 7.7* -- AST -- 59 ALT 57* -- BILIRUBIN TOTAL 1.9* 1.1 ALK PHOS 84 89 INR 1.5* 1.31* Assessment and Plan: 24 Y male with liver cirrhosis secondary to chemotherapy side effects from many years ago. His liver disease was compensated until January 2024 when he started to have recurrent variceal bleeding. He ended up getting a TIPSS which resulted in resolution of GI bleeding. He has been doing well since then. He has not developed any hepatic encephalopathy, not taking lactulose anymore. Will continue to monitor with MELD labs and doppler US every 6 months. Liver follow up in 9 months This note was completely edited, written and reviewed by me and consists of information cut and pasted from the my most recent visit, my smart phrases and other Epic tools. I have personally reviewedall aspects of this note to at least include reviewing this patient's chart and problem list, updating the history, physical exam, lab and procedure results, and assessment and plan as detailed aboveand below. As such this visit note reflects my current evaluation and management for this patient. Rainer Cruz MD documented in this encounter Plan of Treatment Not on file documented as of this encounter Visit Diagnoses Diagnosis S/P TIPS (transjugular intrahepatic portosystemic shunt)- Primary Other postprocedural status Bleeding esophageal varices, unspecified esophageal varices type (CMS-HCC) Portal hypertension (CMS-HCC) Portal hypertension documented in this encounter Care Teams Nursing Project Coordinator Relationship Specialty Start Date End Date Arsh Knox III, MD [address] [place] [address] PCP - General Family Medicine 03/12/24 Eli Aggarwal MD [address] [place] [address] Gastroenterology 04/17/24 Rainer Cruz MD [address] [place] [id number] Consulting Physician Gastroenterology 04/17/24 Cathie Elizabeth MD [address] [place] [address] 04/17/24 documented as of this encounter
--- OUTSIDE RECORDS SUMMARY | 2025-04-29 15:29 | XMS_ITS | Encounter Summary ---
Author Organization [facility] Address [address] [place] [address] Care Team Providers Care Jewelry Department Supervisor Name Role Phone Nicole Tejeda Primary Care Provider [phone]- [phone] Encounter Details Date Type Department Care Team (Late st Contact Info) Description 10/02/2007 Clinical Note [facility] Division of Dentistry [address] [place] [phone] Provider, Historical Social History Tobacco Use Types Packs/Day Years Used Date Smoking Tobacco: Never Assessed Sex and Gender Information Value Date Recorded Sex Assigned at Not on file Legal Sex Male 5:17 AM EST Gender Identity Not on file Sexual Orientation Not on file documented as of this encounter Progress Notes * Provider, Historical - 10/02/2007 12:00 AM EST Prescription written out for Amoxicillin 250mg capsuleNote authored by: Cindi Puckett ([email or web address]) documented in this encounter Plan of Treatment Not on file documented as of this encounter Visit Diagnoses Not on filedocumented in this encounter Care Teams Jewelry Department Supervisor Relationship Specialty Start Date End Date Nicole Tejeda APRN-CNP [address] [place] [address] PCP - General 04/09/25 documented as of this encounter
--- OUTSIDE RECORDS SUMMARY | 2025-04-29 15:29 | XMS_ITS | Encounter Summary ---
Author Organization [facility] Address [address] [place] [address] Care Team Providers Care Emr Implementation Specialist Name Role Phone Nicole Tejeda AKOSUA Primary Care Provider [phone]- [phone] Encounter Details Date Type Department Care Team (Late st Contact Info) Description 07/10/2008 Clinical Note [facility] Division of Dentistry [address] [place] [phone] Provider, Historical Social History Tobacco Use Types Packs/Day Years Used Date Smoking Tobacco: Never Assessed Sex and Gender Information Value Date Recorded Sex Assigned at Not on file Legal Sex Male 5:17 AM EST Gender Identity Not on file Sexual Orientation Not on file documented as of this encounter Progress Notes * Provider, Historical - 07/10/2008 12:00 AM EDT Dentist/Sofa Cover Inspector verified correct patient, correct site, correct procedure, correct positioning ofpatient and special equipment if needed, with Dentist/Sofa Cover Inspector performing procedure immediately prior to beginning the procedure.~~~Pain score for visit _0___; ~Pain scale used (Choose one: Valeria Zuluaga isual analog scale, FLACC) :__oucher .~Note authored by: Salima Aguirre ([email or web address]) documented in this encounter Plan of Treatment Not on file documented as of this encounter Visit Diagnoses Not on filedocumented in this encounter Care Teams Emr Implementation Specialist Relationship Specialty Start Date End Date Nicole Tejeda APRN-NELA [address] [place] [address] PCP - General 04/09/25 documented as of this encounter
--- OUTSIDE RECORDS SUMMARY | 2025-04-29 15:29 | XMS_ITS | Encounter Summary ---
Author Organization [facility] Address [address] [place] [address] Care Team Providers Care Stage Settings Painter Name Role Phone Laurel, Nicole SOUTH Primary Care Provider [phone]- [phone] Encounter Details Date Type Department Care Team (Late st Contact Info) Description 09/07/2007 Clinical Note [facility] Division of Dentistry [address] [place] [phone] Provider, Historical Social History Tobacco Use Types Packs/Day Years Used Date Smoking Tobacco: Never Assessed Sex and Gender Information Value Date Recorded Sex Assigned at Not on file Legal Sex Male 5:17 AM EST Gender Identity Not on file Sexual Orientation Not on file documented as of this encounter Progress Notes * Provider, Historical - 09/07/2007 12:00 AM EST I was present for the oral exam and review of the med history. I reviewed the findings and agree with the residents assessment and decision to tx in the OR with GA. ~Note authored by: Venancio Lang ([email or web address]) documented in this encounter Plan of Treatment Not on file documented as of this encounter Visit Diagnoses Not on filedocumented in this encounter Care Teams Stage Settings Painter Relationship Specialty Start Date End Date Nicole Tejeda APRN-NELA [address] [place] [address] PCP - General 04/09/25 documented as of this encounter
--- OUTSIDE RECORDS SUMMARY | 2025-04-29 15:29 | XMS_ITS | Encounter Summary ---
Author Organization [facility] Address [address] [place] [address] Care Team Providers Care Auto Service Dispatcher Name Role Phone Nicole Tejeda Primary Care Provider [phone]- [phone] Encounter Details Date Type Department Care Team (Late st Contact Info) Description 07/10/2008 Clinical Note [facility] Division of Dentistry [address] [place] [phone] Provider, Historical Social History Tobacco Use Types Packs/Day Years Used Date Smoking Tobacco: Never Assessed Sex and Gender Information Value Date Recorded Sex Assigned at Not on file Legal Sex Male 5:17 AM EST Gender Identity Not on file Sexual Orientation Not on file documented as of this encounter Progress Notes * Provider, Historical - 07/10/2008 12:00 AM EDT I was present for the exam and history. Reviewed the findings and agree with the treatment plan.~Note authored by: Hao Chavez ([email or web address]) documented in this encounter Plan of Treatment Not on file documented as of this encounter Visit Diagnoses Not on filedocumented in this encounter Care Teams Auto Service Dispatcher Relationship Specialty Start Date End Date Nicole Tejeda APRN-CNP [address] [place] [address] PCP - General 04/09/25 documented as of this encounter
--- OUTSIDE RECORDS SUMMARY | 2025-04-29 15:29 | XMS_ITS | Encounter Summary ---
Author Organization [facility] Address [address] [place] [address] Care Team Providers Care Director Of Procurement Name Role Phone Nicole Tejeda KINGSLEY-GOVERNMENT RELATIONS ANALYST Primary Care Provider [phone]- [phone] Encounter Details Date Type Department Care Team (Late st Contact Info) Description 09/28/2007 Clinical Note [facility] Division of Dentistry [address] [place] [phone] Provider, Historical Social History Tobacco Use Types Packs/Day Years Used Date Smoking Tobacco: Never Assessed Sex and Gender Information Value Date Recorded Sex Assigned at Not on file Legal Sex Male 5:17 AM EST Gender Identity Not on file Sexual Orientation Not on file documented as of this encounter Progress Notes * Provider, Historical - 09/28/2007 12:00 AM EST E-mail to Oncologist (Yared/Monse)~~Good morning Dr. Vail and Dr. Shea~~Name: Kwame Middleton~MR#: [id number]~: [birth year]~~My name is Cindi Lavern and I am a first year dental resident who hadthe pleasure of seeing Kwame in the dental clinic on 09/07/07. I am e-mailing you in regards to advise or special considerations needed for Kwame, who I will be taking to the OR on Tuesday October 02, 2007 for dental rehabilitation. As you know, he is an ALL patient and is currently in maintenance. ~~His dental treatment plan includes a cleaning, x-rays, fillings, and stainless crowns. Typically if the decay in a tooth goes into the nerve, we have two treatment options: 1. do a nerve treatment and restore the tooth with a crown vs. 2.extract the tooth. In healthy children this decision is based on clinical findings. In immunocompromised children (like in those patients starting induction chemo) we tend to be more aggressive and we may elect to take the tooth/teeth out to prevent possible complications with infection secondary to nerve treatment failure. His counts from 09/07 showed anANC of 780. I need your recommendation in regards to how aggressive we have to be for treatment. Myfeeling is that extractions may be a better option considering his degree of neutropenia. Kwame may also need extraction of two permanent molars. He will need about two weeks for healing. I will contact mom to get a CBC tomorrow and based on his counts I will cover him with Ampicillin pre-op and amoxicillin for the healing period. In the past some pharmacists have raised the question of prescribing amoxicillin when the patient is receiving methotrexate because it can increase the MTX levels-some oncologist do not seem to be concerned about this interaction. If you have any problem with Amoxicillin, we can use Clindamycin. One more question, under what level of ANC would you consider rescheduling the surgery?~~Please also include other special considerations that may need to be addressed for Kwame.~~Thank you, ~Cindi Puckett DDS~Note authored by: Cindi Puckett ([email or web address]) documented in this encounter Plan of Treatment Not on file documented as of this encounter Visit Diagnoses Not on filedocumented in this encounter Care Teams Director Of Procurement Relationship Specialty Start Date End Date Nicole Tejeda APRN-NELA [address] [place] [address] PCP - General 04/09/25 documented as of this encounter
--- OUTSIDE RECORDS SUMMARY | 2025-04-29 15:29 | XMS_ITS | Encounter Summary ---
Author Organization [facility] Address [address] [place] [address] Care Team Providers Care General Road Foreman Name Role Phone Nicole Tejeda Primary Care Provider [phone]- [phone] Encounter Details Date Type Department Care Team (Late st Contact Info) Description 10/02/2007 Clinical Note [facility] Division of Dentistry [address] [place] [phone] Provider, Historical Social History Tobacco Use Types Packs/Day Years Used Date Smoking Tobacco: Never Assessed Sex and Gender Information Value Date Recorded Sex Assigned at Not on file Legal Sex Male 5:17 AM EST Gender Identity Not on file Sexual Orientation Not on file documented as of this encounter Progress Notes * Provider, Historical - 10/02/2007 12:00 AM EST I was present for the procedure in the OR. Discussed findings, dx, and tx plan. Reviewed the resident note and concurred.~Note authored by: Tan Ca ([email or web address]) documented in this encounter Plan of Treatment Not on file documented as of this encounter Visit Diagnoses Not on filedocumented in this encounter Care Teams General Road Foreman Relationship Specialty Start Date End Date Nicole Tejeda APRN-CNP [address] [place] [address] PCP - General 04/09/25 documented as of this encounter
--- OUTSIDE RECORDS SUMMARY | 2025-04-29 15:29 | XMS_ITS | Encounter Summary ---
Author Organization [facility] Address [address] [place] [address] Care Team Providers Care Bullion Weigher Name Role Phone Nicole Tejeda Primary Care Provider +1- [phone] Encounter Details Date Type Department Care Team (Late st Contact Info) Description 10/02/2007 Clinical Note [facility] Division of Dentistry [address] [place] [phone] Provider, Historical Social History Tobacco Use Types Packs/Day Years Used Date Smoking Tobacco: Never Assessed Sex and Gender Information Value Date Recorded Sex Assigned at Not on file Legal Sex Male 5:17 AM EST Gender Identity Not on file Sexual Orientation Not on file documented as of this encounter Progress Notes * Provider, Historical - 10/02/2007 12:00 AM EST Concur with number of PAs exposed during surgery in OR.Note authored by: Tan Ca ([email or web address]) documented in this encounter Plan of Treatment Not on file documented as of this encounter Visit Diagnoses Not on filedocumented in this encounter Care Teams Bullion Weigher Relationship Specialty Start Date End Date Nicole Tejeda APRN-CNP [address] [place] [address] PCP - General 04/09/25 documented as of this encounter
--- OUTSIDE RECORDS SUMMARY | 2025-04-29 15:29 | XMS_ITS | Encounter Summary ---
Author Organization [facility] Address [address] [place] [address] Care Team Providers Care Newswriter Name Role Phone Nicole Tejeda Primary Care Provider +1- [phone] Encounter Details Date Type Department Care Team (Late st Contact Info) Description 10/02/2007 Clinical Note [facility] Division of Dentistry [address] [place] [phone] Provider, Historical Social History Tobacco Use Types Packs/Day Years Used Date Smoking Tobacco: Never Assessed Sex and Gender Information Value Date Recorded Sex Assigned at Not on file Legal Sex Male 5:17 AM EST Gender Identity Not on file Sexual Orientation Not on file documented as of this encounter Progress Notes * Provider, Historical - 10/02/2007 12:00 AM EST Also took 2 BWs, 2 occlusals, and 2 PA's during the operative phase in the OR.Note authored by: Cindi Puckett ([email or web address]) documented in this encounter Plan of Treatment Not on file documented as of this encounter Visit Diagnoses Not on filedocumented in this encounter Care Teams Newswriter Relationship Specialty Start Date End Date Nicole Tejeda APRN-CNP [address] [place] [address] PCP - General 04/09/25 documented as of this encounter
--- OUTSIDE RECORDS SUMMARY | 2025-04-29 15:29 | XMS_ITS | Encounter Summary ---
Author Organization [facility] Address [address] [place] [address] Care Team Providers Care Sustainable Agriculture Faculty Name Role Phone Nicole Tejeda Primary Care Provider +1- [phone] Encounter Details Date Type Department Care Team (Late st Contact Info) Description 10/02/2007 Clinical Note [facility] Division of Dentistry [address] [place] [phone] Provider, Historical Social History Tobacco Use Types Packs/Day Years Used Date Smoking Tobacco: Never Assessed Sex and Gender Information Value Date Recorded Sex Assigned at Not on file Legal Sex Male 5:17 AM EST Gender Identity Not on file Sexual Orientation Not on file documented as of this encounter Progress Notes * Provider, Historical - 10/02/2007 12:00 AM EST Correction: Should have been 3 PAs and not 2 PAs that were exposed.Note authored by: Cindi Puckett ([email or web address]) documented in this encounter Plan of Treatment Not on file documented as of this encounter Visit Diagnoses Not on filedocumented in this encounter Care Teams Sustainable Agriculture Faculty Relationship Specialty Start Date End Date Nicole Tejeda APRN-CNP [address] [place] [address] PCP - General 04/09/25 documented as of this encounter
--- OUTSIDE RECORDS SUMMARY | 2025-04-29 15:29 | XMS_ITS | Encounter Summary ---
Author Organization [facility] Address [address] [place] [address] Care Team Providers Care Building Pressure Washer Name Role Phone Nicole Tejeda AKOSUA Primary Care Provider +1- [phone] Encounter Details Date Type Department Care Team (Late st Contact Info) Description 07/10/[address] [facility] Division of Dentistry [address] [place] [phone] Provider, Historical Social History Tobacco Use Types Packs/Day Years Used Date Smoking Tobacco: Never Assessed Sex and Gender Information Value Date Recorded Sex Assigned at Not on file Legal Sex Male 5:17 AM EST Gender Identity Not on file Sexual Orientation Not on file documented as of this encounter Progress Notes * Provider, Historical - 07/10/2008 12:00 AM EDT P: recall exam~T: reviewed mdhx. pt positive for a history of ALL. chemo was discontinued in february ofthis year. pt was prescibed a prophylactic antibiotic by his oncologist because he just finished his chemo. moc states that he drank the whole bottle of amoxicillin and was unsure of exact dose. eoe. ioe. medina taken, read, and dx. findings as charted. prophy. F-. OHI. ~E: +/+~N: 6 month recall~~I approve the patient-related information obtained by the language assistant, hygienist, resident and/or attending pertaining to the patient's condition, findings, history and/or treatment.~Note authored by: Robert Saleem ([email or web address]) documented in this encounter Plan of Treatment Not on file documented as of this encounter Visit Diagnoses Not on filedocumented in this encounter Care Teams Building Pressure Washer Relationship Specialty Start Date End Date Nicole Tejeda APRN-GAMING CAGE CASHIER [address] [place] [address] PCP - General 04/09/25 documented as of this encounter
--- OUTSIDE RECORDS SUMMARY | 2025-04-29 15:29 | XMS_ITS | Encounter Summary ---
Author Organization [facility] Address [address] [place] [address] Care Team Providers Care Grocery Checker Name Role Phone Nicole Tejeda AKOSUA Primary Care Provider +1- [phone] Encounter Details Date Type Department Care Team (Late st Contact Info) Description 10/02/2007 Clinical Note [facility] Division of Dentistry [address] [place] [phone] Provider, Historical Social History Tobacco Use Types Packs/Day Years Used Date Smoking Tobacco: Never Assessed Sex and Gender Information Value Date Recorded Sex Assigned at Not on file Legal Sex Male 5:17 AM EST Gender Identity Not on file Sexual Orientation Not on file documented as of this encounter Progress Notes * Provider, Historical - 10/02/2007 12:[address] Vail's nurse (Ginger) inquiring about need for stress dose of dexamethosone. She indicated that he does not have any adrenal insufficiency and he does not require a stress dose - treatas normal. SWNote authored by: Tan Ca ([email or web address]) documented in this encounter Plan of Treatment Not on file documented as of this encounter Visit Diagnoses Not on filedocumented in this encounter Care Teams Grocery Checker Relationship Specialty Start Date End Date Nicole Tejeda APRN-NELA [address] [place] [address] PCP - General 04/09/25 documented as of this encounter
--- OUTSIDE RECORDS SUMMARY | 2025-04-29 15:29 | XMS_ITS | Encounter Summary ---
Author Organization [facility] Address [address] [place] [address] Care Team Providers Care Finishing Department Supervisor Name Role Phone Nicole Tejeda AKOSUA Primary Care Provider +1- [phone] Encounter Details Date Type Department Care Team (Late st Contact Info) Description 09/28/2007 Clinical Note [facility] Division of Dentistry [address] [place] [phone] Provider, Historical Social History Tobacco Use Types Packs/Day Years Used Date Smoking Tobacco: Never Assessed Sex and Gender Information Value Date Recorded Sex Assigned at Not on file Legal Sex Male 5:17 AM EST Gender Identity Not on file Sexual Orientation Not on file documented as of this encounter Progress Notes * Provider, Historical - 09/28/2007 12:[address] Vail's e-mail response~~Ahsan Puente,~I appreciate your thorough consideration of Kwame's case.~Amoxacillin pre and a couple doses post is fine.~I'm not worried about his immune system as much at this juncture - he's deep into the latter part of his planned therapy (shipping and receiving specialist phase only) and his ANC is typically in the normal range and maintained there. I would treat him as you would another patient without leukemia when it comes to 'level of aggressiveness'. That is, I would not extract a tooth on our account.~Caryn,~[place]ito authored by: Cindi Puckett ([email or web address]) documented in this encounter Plan of Treatment Not on file documented as of this encounter Visit Diagnoses Not on filedocumented in this encounter Care Teams Finishing Department Supervisor Relationship Specialty Start Date End Date Nicole Tejeda APRN-SALES SUPERINTENDENT [address] [place] [address] PCP - General 04/09/25 documented as of this encounter
--- OUTSIDE RECORDS SUMMARY | 2025-04-29 15:29 | XMS_ITS | Encounter Summary ---
Author Organization [facility] Address [address] [place] [address] Care Team Providers Care Landscape Photographer Name Role Phone Nicole Tejeda KINGSLEY-NAUTICAL INSTRUMENT MECHANIC Primary Care Provider +1- [phone] Encounter Details Date Type Department Care Team (Late st Contact Info) Description 10/02/2007 Clinical Note [facility] Division of Dentistry [address] [place] [phone] Provider, Historical Social History Tobacco Use Types Packs/Day Years Used Date Smoking Tobacco: Never Assessed Sex and Gender Information Value Date Recorded Sex Assigned at Not on file Legal Sex Male 5:17 AM EST Gender Identity Not on file Sexual Orientation Not on file documented as of this encounter Progress Notes * Provider, Historical - 10/02/2007 12:00 AM EST P: [place] case, consent obtained, PMH is positive for ALL and is in maintenance therapy and stable, behavior is positive for situational anxiety.~~T: Nasotracheal tube + IV, TP, MP, RD~Exam, prophy &fluoride~3(ol) - composite/etch/lambert~30(ob) - amalgam~A - FC pulpotomy w/Tempit~A(4), K(5) - SSC w/Ketac~B, I, J, 14, 19, S, T - extracted~72 mg Lidocaine (2 carpules) with epi 0.036 mg epi~2 sutures(chromic) upper left quadrant~~E: Patient did well, post- op instructions given, dictated, and billed~~NV: 6 month recall~~Note authored by: Cindi Puckett ([email or web address]) documented in this encounter Plan of Treatment Not on file documented as of this encounter Visit Diagnoses Not on filedocumented in this encounter Care Teams Landscape Photographer Relationship Specialty Start Date End Date Nicole Tejeda APRN-NELA [address] [place] [address] PCP - General 04/09/25 documented as of this encounter
--- OUTSIDE RECORDS SUMMARY | 2025-04-29 15:29 | XMS_ITS | Clinical Summary ---
Author Organization [facility] Address [address] [place] [address] Care Team Providers Care Surgery Scheduling Coordinator Name Role Phone Nicole Tejeda AKOSUA Primary Care Provider +1- [phone] Source Comments [facility] is fully rolled out with thefollowing exceptions:General Clinical Research [facility] Allergies Active Allergy Reactions Criticality Noted Date Comments Morphine 09/07/2009 => PRURITIC URTICARIA Medications lansoprazole (PREVACID) 30 MG delayed release capsule Take 1 capsule by mouth 1 time a day. 30 capsule 2 02/25/2024 12:17 PM EDT 02/25/2024 Active fexofenadine (CESAR) 180 MG tablet Take 1 tablet (180 mg total) by mouth 1 time a day as needed for allergies. 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 Maybe darker in appearance. Refer to derm Adjustment disorder with depressed mood 11/25/19 16 Hepatic fibrosis 10/30/2012 Overview (02/02/2017): Liver biopsy 04/2012 - fibrosis. Likely related to antimetabolite therapy. Follow-up with GI-Liver (Dr Aggarwal) Portal hypertension 10/30/2012 Splenomegaly 03/27/2012 History of antineoplastic therapy 10/23/2011 Overview (01/31/2018): At low risk for cardiomyopathy. Anthracycline dose 240 mg/m2. Echo (bubble study) due every 2 years. Done - (11/2016) -LV SF : 31 % LV EF : 67.7 %. Has moderately dilated left atrium. Also has suggesting a trivial degree of intrapulmonary shunting. At low risk for fertility issues - received on 4.3gm/m2 Moles on back and nevus sabaceous - follow clinically Low risk for osteospenia - Low risk for Neurocog issues - In college now See primary care provider regularly. Routine screening and immunizations. Human papilloma virus (HPV) immunization education was provided today. Will get shot today. 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 Presented with WBC 17.4; abdominal pain; lymph nodes per CT. Completed therapy 03/11/2008 Treated as per CCG 1990. No SILK WEAVER disease. No radiation therapy. No BMT. Therapy included Doxarubicin/Daunomycin:240mg/m , Cytoxan:4300mg/m , Intrathecal:Yes, Asparaginase, Mercaptopurine, Thioguanine, Dexamethasone, Vincristine, and Cytarabine. Complications of during therapy include multiple admissions for fever and neutropenia during therapy. Low WBC and platelet count throughout end of therapy and off treatment. BM done 03/2011 showed no leukemia - now found to have portal hypertension and splenomegaly which likely accounts for thrombocytopenia (followed by GI). Can be considered cured. Cont [facility] and with PCP. Resolved Problems Problem Noted Date Diagnosed Date Resolved Date Personal history of antineop lastic chemotherapy 10/11/2012 02/02/2017 Overview (10/11/2012): Treated follow [facility] protocol 1990. Completed all therapy 03/11/2008 Anthracycline 240 mg/m2 Cytoxan 4300 mg/m2 Asparaginase, mercaptopurine, Thioguanine, Dexamethasone, Vincristine, Cytarabine Intrathecal chemotherapy. Tolerated therapy well. Herpes zoster without mention of complication 05/11/20 10 02/02/2017 Immunizations Immunization Administration Dates Next Due HPV-9 (GARDASIL-9) 01/30/2018 Hepatitis A Vaccine 1440 Elu 10/12/2012 Hepatitis A Vaccine 720 Elu 05/08/2013 Influenza Vaccine 0.25 mL 08/07/2010 Influenza Vaccine 0.5 mL - f or patients 6 months and older 08/02/2012 Meningococcal Vaccine 08/02/2012 Pneumococcal 13 Conjugate 05/14/2014 Pneumococcal Vaccine 08/02/2012 Family History Medical History Relation Name Comments Heart Disease Maternal Grandfather HTN Basal/Squamous Cell Carcinoma Maternal Grandmother Heart Disease Maternal Grandmother HTN Basal/Squamous Cell Carcinoma Other Cancer Other MGA Pancreatic CA Heart Disease Other mguncle heart disease at Melanoma Other Other Paternal Grandfather LGd ADHD/ADD Sister 1 Ashley inattentive typ e Severe Acne Sister 1 Ashley Relation Name Status Comments Brother Alive Father Alive Maternal Grandfather Alive Maternal Grandmother Alive Mother Alive Other Paternal Grandfather (Age 57) Paternal Grandmother Alive Sister 1 Ashley Alive Sister 2 Alive Social History Tobacco Use Types Packs/Day Years Used Date Smoking Tobacco: Never Smokeless Tobacco: Never Tobacco Cessation:Counseling Given: Not Answered Alcohol Use Standard Drinks/Week Comments No 0 [...] No 03/09/2024 Adult hurting you or family (09-10) Not on file 03/09/2024 Someone touched you in a sexual way? (09-10) Not on file 03/09/2024 Is someone hurting [...] file Not on file Not on file Last Filed Vital Signs Vital Sign Reading Time Taken Comments Blood Pressure 141/74 12/11/2024 12:33 PM EST Pulse 68 12/11/2024 12:23 PM EST Temperature 36.3 C (97.3 F) 12/11/2024 12:23 PM EST Respiratory Rate 16 12/11/2024 12:23 PM EST Oxygen Saturation 100% 03/11/2024 1:53 PM EDT Inhaled Oxygen Concentration - - Weight 79.5 kg (175 lb 4.3 oz) 12/11/2024 12:23 PM EST Height 172.4 cm (5' 7.87 ) 12/11/2024 12:[address] Body Mass Index 26.75 12/11/2024 12:23 PM EST Plan of Treatment Health Maintenance Due Date Last Done Comments COVID-19 Vaccine (#1) 2003 PNEUMOCOCCAL IMMUNIZATION (2 of 2 - PPSV23, PCV20, or PCV21) 07/09/2014 05/14/2014, 08/02/2012 HEPATITIS B IMMUNIZATION (1 of 3 - 19+ 3-dose series) 2017 HPV IMMUNIZATION (2 - Male 3-dose series) 02/27/2018 01/30/2018 DTAP/Tdap/Td IMMUNIZATION (2 - Td or Tdap) 11/08/2022 10/11/2022 AMB SEASONAL FLU VACCINE (#1) 06/24/2025 08/02/2012, 08/02/2012, 08/07/2010, Additional history exists MMR IMMUNIZATION Completed 04/11/2009 MCV4 IMMUNIZATION Aged Out 08/02/2012 No longer eligible based on patient's age to complete this topic HIB IMMUNIZATION Aged Out No longer e ligible based on patient's age to complete this topic IPV IMMUNIZATION Aged Out No longer e ligible based on patient's age to complete this topic MENINGOCOCCAL B VACCINE Aged Out No l onger eligible based on patient's age to complete this topic Respiratory Syncytial Virus (RSV) <20mo Aged Out No longer eligible based on patient's age to complete this topic Insurance none (Home) [address] [address] [place] NON-TRADITIONAL * Guarantor: ,[facility] Account Type Relation to Patient Date of Phone Billing Address Survivorship (ATP) [facility] [address] [place] [address] [place] none (Home) [address] [place] [address] [address] [place] none (Home) [address] [place] [address] [address] Care Teams Surgery Scheduling Coordinator Relationship Specialty Start Date End Date Nicole Tejeda APRN-INSTRUMENT TECHNICIAN HELPER [address] [place] [address] PCP - General 04/09/25
--- OUTSIDE RECORDS SUMMARY | 2025-04-29 15:29 | XMS_ITS | Encounter Summary ---
Author Organization [facility] Address [address] [place] [address] Care Team Providers Care Planer Off Bearer Name Role Phone Nicole Tejeda AKOSUA Primary Care Provider +1- [phone] Encounter Details Date Type Department Care Team (Late st Contact Info) Description 09/07/2007 Clinical Note [facility] Division of Dentistry [address] [place] [phone] Provider, Historical Social History Tobacco Use Types Packs/Day Years Used Date Smoking Tobacco: Never Assessed Sex and Gender Information Value Date Recorded Sex Assigned at Not on file Legal Sex Male 5:17 AM EST Gender Identity Not on file Sexual Orientation Not on file documented as of this encounter Progress Notes * Provider, Historical - 09/07/2007 12:00 AM EST P: PPTC for NPE~T: review med hx - Leukemia in remission, consent for tx in the OR due to extent oftx, med hx, acute situational anxiety. Exam - gen gross decay. Discussed possibility of fillings, SSCs, and ext's. MOC/FOC are ok with extracting 14 and 19 if decay goes into the pulp. ~E: ++ all questions and concerns addressed~N: Dental Rehab II in OR (try to coordinate with Oncology for Spinal Tap)~~I approve the patient-related information obtained by the accounting administrative assistant, hygienist, resident and/orattending pertaining to the patient's condition, findings, history and/or treatment.~Note authored by: Cindi Puckett ([email or web address]) documented in this encounter Plan of Treatment Not on file documented as of this encounter Visit Diagnoses Not on filedocumented in this encounter Care Teams Planer Off Bearer Relationship Specialty Start Date End Date Nicole Tejeda APRN-NELA [address] [place] [address] PCP - General 04/09/25 documented as of this encounter
--- OUTSIDE RECORDS SUMMARY | 2025-04-29 15:29 | XMS_ITS | Encounter Summary ---
Author Organization [facility] Address [address] [place] [address] Care Team Providers Care It Trainee Name Role Phone Nicole Tejeda Primary Care Provider +1- [phone] Encounter Details Date Type Department Care Team (Late st Contact Info) Description 10/02/2007 Clinical Note [facility] Division of Dentistry [address] [place] [phone] Provider, Historical Social History Tobacco Use Types Packs/Day Years Used Date Smoking Tobacco: Never Assessed Sex and Gender Information Value Date Recorded Sex Assigned at Not on file Legal Sex Male 5:17 AM EST Gender Identity Not on file Sexual Orientation Not on file documented as of this encounter Progress Notes * Provider, Historical - 10/02/2007 12:00 AM EST Reviewed resident note regarding radiographs exposed in OR and concur.Note authored by: Tan Ca ([email or web address]) documented in this encounter Plan of Treatment Not on file documented as of this encounter Visit Diagnoses Not on filedocumented in this encounter Care Teams It Trainee Relationship Specialty Start Date End Date Nicole Tejeda APRN-CNP [address] [place] [address] PCP - General 04/09/25 documented as of this encounter
--- OUTSIDE RECORDS SUMMARY | 2025-04-29 15:29 | XMS_ITS | Encounter Summary ---
Author Organization [facility] Address [address] [place] [address] Care Team Providers Care Aircraft Instrument Mechanic Name Role Phone Nicole Tejeda AKOSUA Primary Care Provider +1- [phone] Reason for Visit * Reason Onset Date Comments Biopsy Results 05/22/2012 Encounter Details Date Type Department Care Team (Late st Contact Info) Description 05/22/2012 Clinical Note [facility] Division of Gastroenterology, Hepatology & Nutrition [address] [place] [phone] Eli Aggarwal M.D. Gastroenterology & Nutrition [address] [place] [phone] Biopsy Results Social History Tobacco Use Types Packs/Day Years Used Date Smoking Tobacco: Never Smokeless Tobacco: Never Alcohol Use Standard Drinks/Week Comments No 0 (1 standard drink = 0.6 oz pur e alcohol) Sex and Gender Information Value Date Recorded [...] on filedocumented in this encounter Care Teams Aircraft Instrument Mechanic Relationship Specialty Start Date End Date Nicole Tejeda APRN-NELA [address] [place] [address] PCP - General 04/09/25 documented as of this encounter
--- OUTSIDE RECORDS SUMMARY | 2025-04-29 15:30 | XMS_ITS | Clinical Summary ---
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 Return to work evaluation 07/07/2022 Social History Tobacco Use Types Packs/Day Years Used Date Smoking Tobacco: Never Smokeless Tobacco: Never Tobacco Cessation:Counseling Given: Not Answered Intimate Partner Violence Answer Date R ecorded Insults You Not on file 07/12/2022 Threatens You Not on file 07/12/2022 Screams at You Not on file 07/12/2022 Physically Hurt Not on file 07/12/2022 Intimate Partner Violence Score Not on file 07/12/2022 Depression Answer Date Recorded PHQ Total Score 0 05/02/2023 Stress Answer Date Recorded Stress in your Life Not on file 08/31/2024 Dealing with Stress 3 08/31/2024 Sex and Gender Information Value Date Recorded Sex Assigned at Not on file Legal Sex Male 1:11 PM CDT Gender Identity Not on file Sexual Orientation Not on file Last Filed Vital Signs Vital Sign Reading Time Taken Comments Blood Pressure 131/60 12/03/2024 6:18 PM EST Pulse 77 11/02/2024 6:56 PM EST Temperature 37.2 C (99 F) 03/29/2024 11:42 AM EDT Respiratory Rate 16 12/03/2024 6:48 PM EST Oxygen Saturation 100% 12/03/2024 6:48 PM EST Inhaled Oxygen Concentration - - Weight 77.9 kg (171 lb 11.2 oz) 07/07/2022 2:18 PM EDT Height 172.2 cm (5' 7.8 ) 07/07/2022 2:18 PM EDT Body Mass Index 26.26 07/07/2022 2:18 PM EDT Plan of Treatment Health Maintenance Due Date Last Done Comments Dental Cleaning/Exam 1998 HIV Screening 1998 Hepatitis C Screening 1998 Covid-19 Immunization (#1) 2003 HPV Immunization (1 - Risk male 3-dose series) 2009 Hep B Infection Screening - Triple Screen 2016 Hepatitis B Immunization (1 of 3 - 19+ 3-dose series) 2017 Annual Preventive Exam 07/07/2023 07/07/2022 Influenza Immunization (#1) 2025 08/07/2010 Tetanus Diphtheria and Pertussis Immunization (2 - Td or Tdap) 10/11/2032 10/11/2022 Meningococcal Immunization Discontinued 08/02/2012 Hepatitis A Immunization Completed 013, 10/12/2012 Pneumococcal: Ped (0 to 5 Yrs) and At-Risk Member (6 to 64 Yrs) Aged Out 05/14/2014, 08/02/2012 No longer eligible based on patient's age to complete this topic HIB Immunization Aged Out No longer e ligible based on patient's age to complete this topic Polio Immunization Aged Out No longer eligible based on patient's age to complete this topic Varicella Immunization Aged Out No lo nger eligible based on patient's age to complete this topic Insurance OPT OUT NO COPAY NB Care Teams Gang Drill Operator Relationship Specialty Start Date End Date Provider, TI[place] [address] PCP - General Balloon Dipper 05/02/23
--- OUTSIDE RECORDS SUMMARY | 2025-04-29 15:30 | XMS_ITS | Clinical Summary ---
Author Organization [facility] Address [facility] [place] [address] Care Team Providers Care Summer Associate Name Role Phone Abilio JOHNSON MD, Arsh Primary Care Provide r Eli Aggarwal MD Unavailable [phone] Rainer Cruz MD Unavailable Cathie Elizabeth MD Unavailable [phone] Source Comments This information has been disclosed to you from confidential records protectedfrom disclosure by state law. You shall make no further disclosure of thisinformation without the specific, written, and informed release of theindividual to whom it pertains, or as otherwise permitted by law. A generalauthorization for the release of medical or other information is not sufficientfor the purposes of therelease of HIV test results or diagnoses. [id number] Allergies Active Allergy Reactions Criticality Noted Date Comments Morphine Hives Medium 03/11/2024 Medications lansoprazole (PREVACID SOLUTAB) 30 MG disintegrating tablet Take 1 tablet (30 mg total) by mouth every morning before breakfast. Active lactulose (CHRONULAC) 10 gram/15 mL solution Take 30 mLs (20 g total) by mouth 3 times a day as needed (Use if you have not had a bowel movement in 24 hours). 946 mL 03/17/2024 12:32 PM EDT 4 Active polyethylene glycol (GLYCOLAX) 17 gram/dose powder Mix one cap (17g) with 8 oz of liquid and drink daily as needed 238 g 03/17/2024 12:32 PM EDT 4 Active senna (SENOKOT) 8.6 mg tablet Take 1 tablet by mouth at bedtime. 30 tablet 03/17/2024 12:32 PM EDT Active fexofenadine (CESAR ODT) 30 MG disintegrating tablet Take 1 tablet (30 mg total) by mouth daily as needed. 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 Maybe darker in appearance. Refer to derm Adjustment disorder with depressed mood 11/25/19 16 Hepatic fibrosis 10/30/2012 Overview (04/17/2024): Liver biopsy 04/2012 - fibrosis. Likely related to antimetabolite therapy. Follow-up with GI-L[facility] (Dr Aggarwal) Portal hypertension 10/30/2012 Splenomegaly 03/27/2012 History of antineoplastic therapy 10/23/2011 Overview (04/17/2024): At low risk for cardiomyopathy. 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 Presented with WBC 17.4; abdominal pain; lymph nodes per CT. Completed therapy 03/11/2008 Treated as per CCG 1990. No DUMP GRADER disease. No radiation therapy. No BMT. Therapy [...] [facility] and with PCP. Encounters Date Type Department Care Team Description 04/04/2025 Orders Only [facility] Interventional Radiology at [facility] [address] [facility] [address] [place] [phone] Viral Cooper MD S/P TIPS (transjugular intrahepatic portosystemic shunt) (Primary Dx); Portal hypertension (CMS-HCC) 03/01/2025 10:00 AM EDT Office Visit [facility] Gastroenterology at [facility] [address] [facility] [address] [place] [phone] Rainer Cruz MD S/P TIPS (transjugular intrahepatic portosystemic shunt) (Primary Dx); Bleeding esophageal varices, unspecified esophageal varices type (CMS-HCC); Portal hypertension (CMS-HCC) 02/26/2025 2:30 PM EDT Office Visit [facility] Interventional Radiology at [facility] [address] [facility] [address] [place] [address] Viral Cooper MD Portal hypertension (CMS-HCC) (Primary Dx); Bleeding esophageal varices, unspecified esophageal varices type (CMS-HCC); Cryptogenic cirrhosis (CMS-HCC); S/P TIPS (transjugular intrahepatic portosystemic shunt) 02/26/2025 12:33 PM EDT - 02/26/2025 11:59 PM EDT Hospital Encounter [facility] Ultrasound at [facility] [address] [facility] [address] [place] [address] Viral Cooper MD S/P TIPS (transjugular intrahepatic portosystemic shunt) Discharge Disposition: Home or Self Care WITHOUT Home Care Services 02/26/2025 Abstract [facility] Interventional Radiology at [facility] [address] [facility] [address] [place] [address] Viral Cooper MD from Last 3 Months Immunizations Immunization Administration Dates Next Due HPV, 9-valent 01/30/2018 Hepatitis A, adult 10/12/2012 Hepatitis A, pediatric 05/08/2013 Influenza, MDCK, quadrivalent, preservative-free 08/02/2012 Influenza, trivalent, with preservative 08/07/20 10 Meningococcal ACWY, MCV4, unspecified conjugate 08/02/2012 Pneumococcal conjugate, 13-valent 05/14/2014 Pneumococcal, unspecified 08/02/2012 tdap 10/11/2022 Family History Medical History Relation Comments Kidney Cancer Brother Relation Status Comments Brother Alive Father Alive Mother Alive Sister 1 Alive Sister 2 Alive Social History Tobacco Use Types Packs/Day Years Used Date Smoking Tobacco: Never Smokeless Tobacco: Never Tobacco Cessation:Counseling Given: Not Answered Alcohol Use Standard Drinks/Week Comments Never 0 (1 standard drink = 0.6 oz pur e alcohol) Utilities Answer Date Recorded In the past 12 months has th e [employer], gas, oil, or water company threatened to shut off services in your home? No 03/11/2024 AUDIT-C Answer Date Recorded Q1: How often do you have a drink containing alcohol? Never 03/11/2024 Q2: How many drinks containi ng alcohol do you have on a typical day when you are drinking? Patient does not drink 4 Q3: How often do you have si [...] any time in the past 12 m [facility], were you homeless or living in a alf (including now)? No 03/11/2024 Yearly Questionnaire Answer [...] Orientation Straight 04/21/2025 5: 33 AM EDT Last Filed Vital Signs Vital Sign Reading Time Taken Comments Blood Pressure 158/66 03/01/2025 9:48 AM EDT Pulse 76 03/01/2025 9:48 AM EDT Temperature 36.5 C (97.7 F) 02/26/2025 1:38 PM EDT Respiratory Rate 18 03/01/2025 9:48 AM EDT Oxygen Saturation 99% 03/01/2025 9:48 AM EDT Inhaled Oxygen Concentration 99% 03/01/2025 9 :48 AM EDT Weight 79.5 kg (175 lb 3.2 oz) 03/01/2025 9:48 A M EDT Height 175.3 cm (5' 9 ) 03/01/2025 9:48 AM EDT Body Mass Index 25.87 03/01/2025 9:48 AM EDT Plan of Treatment Health Maintenance Due Date Last Done Comments Depression Monitoring (PHQ-9) 1998 Immunization: COVID-19 (#1) 2003 Immunization: Pneumococcal ( 2 of 2 - PPSV23, PCV20, or PCV21) 07/09/2014 05/14/2014 HIV Screening 2016 Immunization: Zoster (1 of 2) 2017 Immunization: HPV (2 - Male 3-dose series) 02/27/2018 01/30/2018 Immunization: Influenza (MyChart) (#1) 2025 08/02/2012, 08/07/2010 Immunization: DTaP/Tdap/Td ( 2 - Td or Tdap) 10/11/2032 10/11/2022 Immunization: Meningococcal ACWY Aged Out 08/02/2012 No longer eligible b ased on patient's age to complete this topic Hepatitis C Screening ([employer]) Completed 03/30/2024 Medical Devices Implanted Type Area Lockstitch Zipper Setter Device Identifier Shelf Expiration Date Model / Serial / Lot System Embolization [place] 18 Dimethyl Sulfoxide 1.5 Ml 1 Ml Syringe - [id number] Implanted:Qty: 4 on 03/14/2024 by Rodolfo Mack MD at [facility] Main Stent Stomach [employer] 02/24/2026 [id number] / / [id number] Description:varices Stent Endoprosthesis Pasco Viatorr L7 Cm L2 Cm Od8-10 Mm Accepts .035- In Guidewire 10 Fr Introducer Sheath Tips - [id number] Implanted:Qty: 1 on 03/14/2024 by Rodolfo Mack MD at [facility] Main Stent Liver W L GORE 12/10/2026 [id number] / [id number] / Description:TIPS Procedures Procedure Name Priority Date/Time Associated Diagnosis Comments US ABDOMEN COMPLETE Routine 02/26/2025 1 :33 PM EDT S/P TIPS (transjugular intrahepatic portosystemic shunt) US DUPLEX [id number] COMPLETE Routine 02/26/2025 1:33 PM EDT S/P TIPS (transjugular intrahepatic portosystemic shunt) HEPATIC FUNCTION PANEL Routine 02/19/2025 1:03 PM EDT AFP TUMOR MARKER Routine 02/19/2025 1:03 PM EDT CBC AND DIFFERENTIAL Routine 02/19/2025 1:03 PM EDT COAG PROFILE Routine 02/19/2025 1:03 PM EDT HEPATIC FUNCTION PANEL Routine 02/19/2025 1:03 PM EDT HEPATITIS C ANTIBODY Routine 03/30/2024 11:02 AM EDT Cryptogenic cirrhosis (CMS-HCC) from Last 3 Months or Most Recently Relevant to Health Maintenance Results * US Duplex [id number] Comp (02/26/2025 1:33 PM EDT) Anatomical Region Laterality Modality Abdomen, Pelvis, Testes, Vascular Ultrasound 02/26/2025 12:4 3 PM EDT Impressions 02/26/2025 1:47 PM EDT IMPRESSION: ABDOMEN Stable sonographic appearance of cirrhotic liver with TIPS in place. No focal lesions are seen. No ascites. LIVER DOPPLER Patent TIPS stent with appropriate direction of flow and velocity profile as above.. Report Verified by: Anton White MD at 02/26/2025 1:47 PM EDT Narrative 02/26/2025 1:47 PM EDT EXAM: US ABDOMEN COMPLETE EXAM: US DUPLEX [id number] COMPLETE INDICATION: Cirrhosis; Please check for fluid, tips patency with velocities and flow with resistive indices; S/P TIPS (transjugular intrahepatic portosystemic shunt) COMPARISON: 07/16/2024. TECHNIQUE: Grayscale imaging was performed for evaluation of the liver, gallbladder, common bile duct, pancreas, spleen, and kidneys; color and spectral (duplex) Doppler analysis of the hepatic vasculature was also performed. FINDINGS: The liver parenchyma is increased in echogenicity with coarsening of the underlying echotexture. On imaging provided no suspicious focal lesions are seen. A TIPS is present. There is no intrahepatic biliary ductal dilation. The common duct measures 4 mm. The gallbladder is normal in appearance than negative sonographic Hidalgo's sign. There is no ascites. The pancreas is not well seen due to poor acoustic windows. Limited imaging of the aorta is within normal limits. The spleen is enlarged, measuring 20.3 cm. The right kidney is 12.2 cm. The left kidney measures 14.3 cm. Both are grossly normal in appearance. There is hepatopedal flow in the main portal vein. Velocities measure up to 42.0 cm/s. Slow bidirectional flow is seen in the right portal vein. Hepatopedal flow is seen in the left portal vein, likely secondary to the presence of a recanalized umbilical vein. The TIPS is patent with appropriate direction of flow. In the proximal portion of the TIPS near the portal vein, the velocity is 185.1 cm/s. In the mid stent the velocity is 155.3 cm/s. In the distal portion of the stent at the level of the right hepatic vein, the velocity is 132.4 cm/s. Spectral duplex Doppler hepatic arterial waveforms are within normal limits. Normal waveforms are seen in the hepatic veins and intrahepatic portion of the IVC. Procedure Note Anton White MD - 02/26/2025 EXAM: US ABDOMEN COMPLETE EXAM: US DUPLEX [id number] COMPLETE INDICATION: Cirrhosis; Please check for fluid, tips patency withvelocities and flow with resistive indices; S/P TIPS (transjugularintrahepatic portosystemic shunt) COMPARISON: 07/16/2024. TECHNIQUE: Grayscale imaging was performed for evaluation of the liver,gallbladder, common bile duct, pancreas, spleen, and kidneys; color andspectral (duplex) Doppler analysis of the hepatic vasculature was alsoperformed. FINDINGS: The liver parenchyma is increased in echogenicity with coarsening of theunderlying echotexture. On imaging provided no suspicious focal lesionsare seen. A TIPS is present. There is no intrahepatic biliary ductaldilation. The common duct measures 4 mm. The gallbladder is normal inappearance than negative sonographic Hidalgo's sign. There is no ascites. The pancreas is not well seen due to poor acoustic windows. Limitedimaging of the aorta is within normal limits. The spleen is enlarged,measuring 20.3 cm. The right kidney is 12.2 cm. The left kidney measures 14.3 cm. Both aregrossly normal in appearance. There is hepatopedal flow in the main portal vein. Velocities measure upto 42.0 cm/s. Slow bidirectional flow is seen in the right portal vein.Hepatopedal flow is seen in the left portal vein, likely secondary to thepresence of a recanalized umbilical vein. The TIPS is patent with appropriate direction of flow. In the proximalportion of the TIPS near the portal vein, the velocity is 185.1 cm/s. Inthe mid stent the velocity is 155.3 cm/s. In the distal portion of thestent at the level of the right hepatic vein, the velocity is 132.4cm/s. Spectral duplex Doppler hepatic arterial waveforms are within normallimits. Normal waveforms are seen in the hepatic veins and intrahepatic portion ofthe IVC. IMPRESSION: ABDOMEN Stable sonographic appearance of cirrhotic liver with TIPS in place. Nofocal lesions are seen. No ascites. LIVER DOPPLER Patent TIPS stent with appropriate direction of flow and velocity profileas above.. Report Verified by: Anton White MD at 02/26/2025 1:47 PM EDT [facility] US ORDERABLES Final Result * US Abdomen Complete (02/26/2025 1:33 PM EDT) Anatomical Region Laterality Modality Abdomen Ultrasound 02/26/2025 12:4 3 PM EDT Impressions 02/26/2025 1:47 PM EDT IMPRESSION: ABDOMEN Stable sonographic appearance of cirrhotic liver with TIPS in place. No focal lesions are seen. No ascites. LIVER DOPPLER Patent TIPS stent with appropriate direction of flow and velocity profile as above.. Report Verified by: Anton White MD at 02/26/2025 1:47 PM EDT Narrative 02/26/2025 1:47 PM EDT EXAM: US ABDOMEN COMPLETE EXAM: US DUPLEX [id number] COMPLETE INDICATION: Cirrhosis; Please check for fluid, tips patency with velocities and flow with resistive indices; S/P TIPS (transjugular intrahepatic portosystemic shunt) COMPARISON: 07/16/2024. TECHNIQUE: Grayscale imaging was performed for evaluation of the liver, gallbladder, common bile duct, pancreas, spleen, and kidneys; color and spectral (duplex) Doppler analysis of the hepatic vasculature was also performed. FINDINGS: The liver parenchyma is increased in echogenicity with coarsening of the underlying echotexture. On imaging provided no suspicious focal lesions are seen. A TIPS is present. There is no intrahepatic biliary ductal dilation. The common duct measures 4 mm. The gallbladder is normal in appearance than negative sonographic Hidalgo's sign. There is no ascites. The pancreas is not well seen due to poor acoustic windows. Limited imaging of the aorta is within normal limits. The spleen is enlarged, measuring 20.3 cm. The right kidney is 12.2 cm. The left kidney measures 14.3 cm. Both are grossly normal in appearance. There is hepatopedal flow in the main portal vein. Velocities measure up to 42.0 cm/s. Slow bidirectional flow is seen in the right portal vein. Hepatopedal flow is seen in the left portal vein, likely secondary to the presence of a recanalized umbilical vein. The TIPS is patent with appropriate direction of flow. In the proximal portion of the TIPS near the portal vein, the velocity is 185.1 cm/s. In the mid stent the velocity is 155.3 cm/s. In the distal portion of the stent at the level of the right hepatic vein, the velocity is 132.4 cm/s. Spectral duplex Doppler hepatic arterial waveforms are within normal limits. Normal waveforms are seen in the hepatic veins and intrahepatic portion of the IVC. Procedure Note Anton White MD - 02/26/2025 EXAM: US ABDOMEN COMPLETE EXAM: US DUPLEX [id number] COMPLETE INDICATION: Cirrhosis; Please check for fluid, tips patency withvelocities and flow with resistive indices; S/P TIPS (transjugularintrahepatic portosystemic shunt) COMPARISON: 07/16/2024. TECHNIQUE: Grayscale imaging was performed for evaluation of the liver,gallbladder, common bile duct, pancreas, spleen, and kidneys; color andspectral (duplex) Doppler analysis of the hepatic vasculature was alsoperformed. FINDINGS: The liver parenchyma is increased in echogenicity with coarsening of theunderlying echotexture. On imaging provided no suspicious focal lesionsare seen. A TIPS is present. There is no intrahepatic biliary ductaldilation. The common duct measures 4 mm. The gallbladder is normal inappearance than negative sonographic Hidalgo's sign. There is no ascites. The pancreas is not well seen due to poor acoustic windows. Limitedimaging of the aorta is within normal limits. The spleen is enlarged,measuring 20.3 cm. The right kidney is 12.2 cm. The left kidney measures 14.3 cm. Both aregrossly normal in appearance. There is hepatopedal flow in the main portal vein. Velocities measure upto 42.0 cm/s. Slow bidirectional flow is seen in the right portal vein.Hepatopedal flow is seen in the left portal vein, likely secondary to thepresence of a recanalized umbilical vein. The TIPS is patent with appropriate direction of flow. In the proximalportion of the TIPS near the portal vein, the velocity is 185.1 cm/s. Inthe mid stent the velocity is 155.3 cm/s. In the distal portion of thestent at the level of the right hepatic vein, the velocity is 132.4cm/s. Spectral duplex Doppler hepatic arterial waveforms are within normallimits. Normal waveforms are seen in the hepatic veins and intrahepatic portion ofthe IVC. IMPRESSION: ABDOMEN Stable sonographic appearance of cirrhotic liver with TIPS in place. Nofocal lesions are seen. No ascites. LIVER DOPPLER Patent TIPS stent with appropriate direction of flow and velocity profileas above.. Report Verified by: Anton White MD at 02/26/2025 1:47 PM EDT Viral Cooper MD IMG US ORDERABLES Final Result * (ABNORMAL) COAG PROFILE (02/19/2025 1:03 PM EDT) INR 1.31(A) 0.9 - 1.1 OTHER Protime 14.3 OTHER Plasma Narrative Resulting Agency Comment [facility] Viral Cooper MD LAB BLOOD ORDERABLES Fi nal Result Performing Organization Address [facility] de Phone Number OTHER * Hepatic Function Panel (02/19/2025 1:03 PM EDT) Only the most recent of2 resultswithin the time period is included. Bilirubin, Indirect 1.1 OTHER Bilirubin, Direct 0.0 mg/dL OTHER Plasma Narrative Resulting Agency Comment [facility] Result [facility] Viral Cooper MD LAB BLOOD ORDERABLES Fi nal Result Performing Organization Address [facility] de Phone Number OTHER * AFP tumor marker (02/19/2025 1:03 PM EDT) AFP-Tumor Marker 2.1 OTHER Serum Narrative Resulting Agency Comment [facility] Result [facility] Viral Cooper MD LAB BLOOD ORDERABLES Fi nal Result Performing Organization Address [facility] Co de Phone Number OTHER * (ABNORMAL) CBC and differential (02/19/2025 1:03 PM EDT) Hemoglobin 10.7(A) 13.5 - 17.5 g/dL OTHER Hematocrit 33.4(A) 41 - 53 % OTHER RDW 15.7(A) 11.5 - 14.5 % OTHER MCH 22.5(A) 26.0 - 34.0 pg OTHER MCHC 32.0 30 - 37 g/dL OTHER MCV 70.3(A) 82.0 - 108.0 fL OTHER Platelets 63 K/ L OTHER RBC 4.75 4.50 - 5.90 10^6/ L OTHER WBC 3.2 10^3/mL OTHER Blood Narrative Resulting Agency Comment [facility] Viral Cooper MD LAB BLOOD ORDERABLES Fi nal Result OTHER * Hepatitis C Antibody (03/30/2024 11:02 AM EDT) HCV Ab Nonreactive Nonreactive 03/30/2024 5:36 PM EDT [facility] Comment:Health Department no tified in accordance with reportable infectious disease guidelines. Serum 03/30/2024 11:0 2 AM EDT 03/30/2024 4:45 PM EDT Narrative [facility] - 03/30/2024 5:36 PM EDT Antibodies to HCV not detected; does not exclude the possibility of exposure to HCV. Rainer Cruz MD LAB BLOOD ORDERABLES Final Resul t [facility] [address] from Last 3 Months or Most Recently Relevant to Health Maintenance Insurance [place] [address] [place] [id number] BLUE ACCESS Advance Directives For more information, please contact: [phone] * Full Code (Latest Code Status on File) Date Activated Date Inactivated Comments 03/11/2024 2:11 PM 03/17/2024 8:39 PM Care Teams Summer Associate Relationship Specialty Start Date End Date Arsh Knox III, MD [address] [place] [address] PCP - General Family Medicine 03/12/24 Eli Aggarwal MD [address] [place] [id number] Gastroenterology 04/17/24 Rainer Cruz MD [address] [place] [phone] Consulting Physician Gastroenterology 04/17/24 Cathie Elizabeth MD [address] [place] [id number] 04/17/24
--- OUTSIDE RECORDS SUMMARY | 2025-04-29 15:30 | XMS_ITS | Encounter Summary ---
Author Organization [facility] Address [address] [place] [id number] Care Team Providers Care Form Setter Name Role Phone Nicole Tejeda AKOSUA Primary Care Provider [phone]- [phone] Encounter Details Date Type Department Care Team (Late st Contact Info) Description 11/14/2009 Abstract [facility] Cancer and Blood Diseases [place] [address] [place] [phone] Radha Duron, R.N. Social History Tobacco Use Types Packs/Day Years [...] Procedure Name Priority Date/Time Associated Diagnosis Comments EXTERNAL LAB CBC, DIFF, PLATELETS Routine 11/12/2009 documented in this encounter Results * (ABNORMAL) External Lab CBC, Diff, Platelets, Retic (11/12/2009) WBC EXT 3(A) 4.5 - 10 EXTERNAL LAB RBC EXT 4.73 3.8 - 5.6 EXTERNAL LAB HGB EXT 12.4 11.4 - 17 EXTERNAL LAB HCT EXT 36.1 36.0 - 52 EXTERNAL LAB MCV LEVEL EXT 76(A) 80 - 100 EXTERNAL LAB MCH LEVEL EXT 26.2 26 - 32 EXTERNAL LAB MCHC LEVEL EXT 34.3 32 - 36 EXTERNAL LAB RDW EXT 17.2 5 - 25 EXTERNAL LAB PLATELETS EXT 85(A) 150 - 450 EXTERNAL LAB BANDS EXT 8 EXTERNAL LAB SEGS EXT 37 EXTERNAL LAB LYMPHS EXT 46 EXTERNAL LAB BLASTS EXT EXTERNAL LAB LYMPH ATYPICAL EXT EXTERNAL LAB BASOPHILS EXT 0 EXTERNAL LAB NEUTROPHIL ABSOLUTE EXT 1350 EXTERNAL LAB MONOCYTE EXT 6 EXTERNAL LAB EOSINOPHIL EXT 3 EXTERNAL LAB RETIC COUNT EXT EXTERNAL LAB RBC NUCLEATED EXT EXTERNAL LAB PERFORMING LAB IN NARRATIVE Yes EXTERNAL LAB Blood specimen (specimen) 11/12/2009 Robert Vail M.D. EXTERNAL LAB ORDERABLES Fi nal Result EXTERNAL LAB documented in this encounter Visit Diagnoses Not on filedocumented in this encounter Care Teams Form Setter Relationship Specialty Start Date End Date Nicole Tejeda APRN-NELA [address] [place] [address] PCP - General 04/09/25 documented as of this encounter
--- OUTSIDE RECORDS SUMMARY | 2025-04-29 15:30 | XMS_ITS | Encounter Summary ---
Author Organization [facility] Address [address] [place] [address] Care Team Providers Care Rn Lpn Cna Name Role Phone Nikhil Nicole AKOSUA Primary Care Provider [phone]- [phone] Encounter Details Date Type Department Care Team (Late st Contact Info) Description 04/13/2011 Orders Only [facility] [address] [place] [phone] Sharon Elizalde, RMaryamN. 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 Late effect of other and unspecified external causes Expected: 10/05/2011, Expires: 06/13/2013 documented as of this encounter Results * Echocardiogram Transthoracic (10/20/2011 1:32 PM EST) Anatomical Region Laterality Modality Ultrasound us Li Hoffmann [employer] ORDERABLES Final R esult documented in this encounter Visit Diagnoses Diagnosis 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
--- OUTSIDE RECORDS SUMMARY | 2025-04-29 15:30 | XMS_ITS | Encounter Summary ---
Author Organization [facility] Address [address] [place] [address] Care Team Providers Care Pattern Keeper Name Role Phone Nicole Tejeda AKOSUA Primary Care Provider +1- [phone] Encounter Details Date Type Department Care Team (Late st Contact Info) Description 11/24/2009 Abstract [facility] Cancer and Blood Diseases [place] [address] [place] [phone] Recreation Aide, [facility] Social History Tobacco Use Types Packs/Day Years Used Date Smoking Tobacco: Never Assessed Sex and Gender Information Value Date Recorded Sex Assigned at Not on file Legal Sex Male 5:17 AM EST Gender Identity Not on file Sexual Orientation Not on file documented as of this encounter Last Filed Vital Signs Vital Sign Reading Time Taken Comments Blood Pressure - - Pulse - - Temperature - - Respiratory Rate - - Oxygen Saturation - - Inhaled Oxygen Concentration - - Weight 34.6 kg (76 lb 4.5 oz) 09/26/2009 8:31 AM EST Height 138.6 cm (4' 6.57 ) 09/26/2009 8:31 AM ES T Body Mass Index 18.01 09/26/2009 8:31 AM EST Body Mass Index Percentile 63.59% 09/26/2009 8:3 1 AM EST Growth Chart: CDC (Boys, 2-2 0 Years) documented in this encounter Plan of Treatment Not on file documented as of this encounter Visit Diagnoses Not on filedocumented in this encounter Care Teams Pattern Keeper Relationship Specialty Start Date End Date Nicole Tejeda APRN-NELA [address] [place] [id number] PCP - General 04/09/25 documented as of this encounter
--- OUTSIDE RECORDS SUMMARY | 2025-04-29 15:30 | XMS_ITS | Encounter Summary ---
Author Organization [facility] Address [address] [place] [address] Care Team Providers Care Product Safety Tester Name Role Phone Abilio JOHNSON MD, Arsh Primary Care Provide r Eli Aggarwal MD Unavailable [phone] Rainer Cruz MD Unavailable Cathie Elizabeth MD Unavailable [phone] Source Comments This information has been [...] release of HIV test results or diagnoses. [id number] Health Encounter Details Date Type Department Care Team (Late st Contact Info) Description 04/04/2025 Orders Only [facility] Interventional Radiology [facility] [address] [facility] [address] [place] [phone] Viral Cooper MD [address] 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 No 03/11/2024 Yearly Questionnaire Answer [...] AM EDT documented as of this encounter Plan of Treatment Scheduled Orders Name Type Priority Associated Diagnoses Orde r Schedule CBC Lab Routine Portal hypertension (CMS-HCC) S/P TIPS (transjugular intrahepatic portosystemic shunt) Expected: 05/04/2025, Expires: 10/04/2026 Hepatic Function Panel Lab Routine Portal hypertension (CMS-HCC) S/P TIPS (transjugular intrahepatic portosystemic shunt) Expected: 05/04/2025, Expires: 10/04/2026 Protime-INR Lab STAT Portal hypertension (CMS-HCC) S/P TIPS (transjugular intrahepatic portosystemic shunt) Expected: 05/04/2025, Expires: 10/04/2026 AFP tumor marker Lab STAT Portal hypertension (CMS-HCC) S/P TIPS (transjugular intrahepatic portosystemic shunt) Expected: 05/04/2025, Expires: 10/04/2026 Renal Function Panel w/EGFR Lab Routine Portal hypertension (CMS-HCC) S/P TIPS (transjugular intrahepatic portosystemic shunt) Expected: 05/04/2025, Expires: 10/04/2026 US Duplex [id number] Comp Imaging Routine Portal hypertension (CMS-HCC) S/P TIPS (transjugular intrahepatic portosystemic shunt) Expected: 05/04/2025, Expires: 10/04/2026 US Abdomen Complete Imaging Routine Portal hypertension (CMS-HCC) S/P TIPS (transjugular intrahepatic portosystemic shunt) Expected: 05/04/2025, Expires: 10/04/2026 documented as of this encounter Visit Diagnoses Diagnosis S/P TIPS (transjugular intrahepatic portosystemic shunt)- Primary Other postprocedural status Portal hypertension (CMS-HCC) Portal hypertension documented in this encounter Care Teams Product Safety Tester Relationship Specialty Start Date End Date Arsh Knox III, MD [address] [place] [address] PCP - General Family Medicine 03/12/24 Eli Aggarwal MD [address] [place] [address] Gastroenterology 04/17/24 Rainer Cruz MD [address] [place] [phone] Consulting Physician Gastroenterology 04/17/24 Cathie Elizabeth MD [address] [place] [address] 04/17/24 documented as of this encounter
[2025-04-29 15:53] LABS: Hematocrit 34.3 % (42.0-52.0); Hemoglobin 10.9 g/dL (14.1-18.0); Immature Granulocytes % 0 %; Mean Corpuscular HGB Conc 31.8 g/dL (31.8-35.4); Mean Corpuscular Hemoglobin 22.4 pg (27.0-31.2); Mean Corpuscular Volume 70.4 fl (80-94); Nucleated Red Blood Cells % 0 %; Red Blood Count 4.87 M/mm3 (4.60-6.20); Red Cell Distribution Width-SD 39.5 fL; White Blood Count 2.3 K/mm3 (4.8-10.8)
[2025-04-29 16:13] LABS: INR 1.34 (0.9-1.1); Prothrombin Time 14.6 seconds (10.1-12.5)
[2025-04-29 16:16] LABS: Alanine Aminotransferase 59 U/L (12-78); Albumin Level 3.2 g/dl (3.5-5.0); Alkaline Phosphatase 67 U/L (38-126); Anion Gap 12.7 mEq/L (5-15); Aspartate Amino Transferase 61 U/L (17-59); Bilirubin,Direct 0.1 mg/dl (0.0-0.4); Bilirubin,Indirect 1.9 mg/dL (0.0-0.9); Bilirubin,Total 2.0 mg/dl (0.2-1.3); Bilirubin,Unconjugated 1.9 mg/dL (0.0-1.1); Blood Urea Nitrogen 10 mg/dl (9-20); Calcium 7.7 mg/dl (8.4-10.2); Carbon Dioxide 25 mmol/L (22.0-30.0); Chloride 105 mmol/L (98-107); Creatinine,Serum 0.70 mg/dl (0.66-1.25); Estimated Glomerular Filt Rate 136 ml/min (>60); GFR (African American) 165 ML/MIN (>60); Glucose 138 mg/dl (74-100); Phosphorous 2.2 mg/dl (2.5-4.5); Potassium 3.7 mmoL/L (3.5-5.1); Sodium 139 mmol/L (136-145); Total Protein,Serum 5.9 g/dl (6.3-8.2)
[2025-04-29 16:46] LABS: Platelet Count 53 K/mm3 (142-424)
== END 2025-04-29 23:59 | disposition home or self-care (01) ==
LOC: LAB 15:28
PROVIDERS: PCP Family Medicine; Visit Provider Radiology Diagnostic Radiology
DX: Z95.828 Presence of other vascular implants and grafts (principal); K76.6 Portal hypertension
CPT/HCPCS: 36415; 80069; 80076; 82105; 85025; 85610